=== PATIENT | male | born 1975 | race Caucasian/White ===

== ENCOUNTER 2016-10-10 15:08 | Emergency (ER) | payer OTHER ==
[~2016-10-10] VITALS: Ht 175.3 cm; Wt 72.6 kg
[2016-10-10 16:05] LABS: ABSOLUTE BASOPHIL COUNT 0.1 /CUMM (0.0-0.2); ABSOLUTE EOSINOPHIL COUNT 0.1 /CUMM (0.0-0.7); ABSOLUTE GRANULOCYTE CT 10.3 /CUMM (1.4-6.5); ABSOLUTE LYMPH COUNT 3.6 /CUMM (1.2-3.4); ABSOLUTE MONOCYTE COUNT 1.5 /CUMM (0.10-0.60); BASOPHIL % 0.7 % (0.0-2.0); EOSINOPHIL % 0.7 % (0-5); GRANULOCYTE % 65.6 % (42.2-75.2); RED BLOOD CELL CT 5.96 /CUMM (4.70-6.10); WHITE BLOOD CELL COUNT 15.6 /CUMM (4.8-10.8)
[2016-10-10 16:14] LABS: HEMATOCRIT 54.1 % (42-52); MEAN CORPUSCULAR HGB 30.3 PG (27.0-31.0); MEAN CORPUSCULAR HGB CONC 33.4 G/DL (33.0-37.0); MEAN CORPUSCULAR VOLUME 90.7 FL (80.0-94.0); MEAN PLATELET VOLUME 8.1 FL (7.4-10.4); PLATELET COUNT 320 /CUMM (130-400); RBC DISTRIBUTION WIDTH 12.7 % (11.5-14.5)
--- NOTE | 2016-10-10 17:15 | ED GI/GU/ABDOMINAL COMPLAINT ---
History of Present Illness General Chief Complaint: General Adult Stated Complaint: WEAKNESS, WEIGHT LOSS,ABD.PAIN, HX OF DKA Source: patient Exam Limitations: no limitations Vital Signs & Intake/Output Vital Signs & Intake/Output Vital Signs Date Time Temp Pulse Resp B/P B/P Pulse O2 O2 Flow FiO2 Mean Ox Delivery Rate 10/10 1737 98.6 90 18 135/79 97 Room Air 10/10 1512 99.3 116 18 102/72 96 Room Air Allergies Coded Allergies: NO KNOWN ALLERGIES (10/10/16) Triage Note: PT TO TRIAGE WITH C/O GENERAL WEAKNESS, LOSS OF APPETITE, UPPER ABD PAIN, NAUSEA x5 DAYS. PT WAS AT FOR DKA x6DAYS, AND WAS DC A WEEK AGO. HX OF DIABETES,ASTHMA,NEUROPOTHY. BG 150 IN TRIAGE, VSS. PT DENIES CHEST PAIN,SOB, DENIES URINARY S/S. ALSO PT CONSTIPATING xWEEK. Triage Nurses Notes Reviewed? yes HPI: Mr. Flores is a 41 yo m w/ PMH diabetes and asthma presenting to the emergency department for abdominal pain. Patient states that he was just hospitalized at [facility] for 11 days for DKA. He's been on for 4 days now and has not had any improvement in symptoms. He continues to have subjective chills as well as body sweats. Patient has not checked his temperature to assess for fever. He also endorses diffuse abdominal pain, and nausea with intermittent episodes of vomiting. No blood or bilious vomit. Last episode of vomiting was earlier today. states that the patient is having frequent episodes of GERD and reflux. He has been actively belching and unable to keep down food. endorses a 10-20 pound weight loss over the past month. (CHRISTOPHER REYNA MD) Past History Travel History Traveled to [place] past 21 day No Medical History Any Pertinent Medical History? see below for history Respiratory: asthma Endocrine: diabetes Surgical History Surgical History: none Psychosocial History What is your primary language Sami Tobacco Use: Quit <30 days ago Family History Hx Contributory? No (CHRISTOPHER REYNA MD) Review of Systems Review of Systems Constitutional: Reports: see HPI, chills. EENTM: Reports: no symptoms. Respiratory: Reports: no symptoms. Cardiovascular: Reports: no symptoms. GI: Reports: abdominal pain, nausea, vomiting. Genitourinary: Reports: frequency. Musculoskeletal: Reports: no symptoms. Skin: Reports: no symptoms. Neurological/Psychological: Reports: no symptoms. Hematologic/Endocrine: Reports: no symptoms. Immunologic/Allergic: Reports: no symptoms. All Other Systems: Reviewed and Negative (CHRISTOPHER REYNA MD) Physical Exam Physical Exam General Appearance: well developed/nourished, no apparent distress, alert, awake , moderate distress, thin Head: atraumatic, normal appearance Eyes: Bilateral: normal appearance, PERRL, EOMI, normal inspection. Ears, Nose, Throat, Mouth: hearing grossly normal Neck: normal inspection, supple, full range of motion Respiratory: normal breath sounds, chest non-tender, no respiratory distress Cardiovascular: regular rate/rhythm Gastrointestinal: normal bowel sounds, soft, diffusely tender. Mild voluntary guarding. No rebound Rectal: deferred Back: normal inspection, normal range of motion Extremities: normal range of motion Neurologic/Psych: no motor/sensory deficits, awake, alert, oriented x 3, normal gait, normal mood/affect Skin: intact, normal color, warm/dry Core Measures ACS in differential dx? No Severe Sepsis Present: No Septic Shock Present: No (CHRISTOPHER REYNA MD) Progress Differential Diagnosis: bowel obstruction, cholecystitis, diverticulitis, gastritis, ischemic bowel Plan of Care: Orders Procedure Date/time Status URINALYSIS 10/10 1707 Complete MIXED VENOUS BLOOD GAS (GEN) 10/10 1540 Active LIPASE 10/10 1540 Complete LACTIC ACID 10/10 1540 Complete COMPREHENSIVE METABOLIC PANEL 10/10 1540 Complete CBC WITHOUT DIFFERENTIAL 10/10 1540 Complete ACETONE 10/10 1540 Complete Current Medications Sig/Patrica Start time Last Medication Dose Stop Time Status Admin Sodium Chloride 1,000 ML BOLUS ONE 10/11 1999 AC (Normal Saline 0.9%) 10/10 205 Laboratory Tests 10/10/16 1840: Lactic Acid Cancelled 10/10/16 1745: Urinalysis LIGHT H, Urine Color YEL, Urine Clarity CLEAR, Urine pH 6.0, Ur Specific [place] 1.020, Urine Protein TRACE H, Urine Ketones TRACE H, Urine Nitrite NEG, Urine Bilirubin NEG, Urine Urobilinogen 2.0 H, Ur Leukocyte Esterase NEG, Ur Microscopic SEDIMENT EXAMINED, Urine WBC RARE, Urine Bacteria MOD H, Urine Hemoglobin NEG, Urine Glucose 250 H 10/10/16 1554: Anion Gap 13, Estimated GFR > 60, BUN/Creatinine Ratio 26.7 H, Glucose 145 H, Lactic Acid 1.7, Calcium 9.7, Total Bilirubin 1.6 H, AST 17, ALT 30, Alkaline Phosphatase 60, Total Protein 7.6, Albumin 4.4, Globulin 3.2, Albumin/Globulin Ratio 1.4, Lipase 87, CBC w Diff MAN DIFF ORDERED, RBC 5.96, MCV 90.7, MCH 30.3, RDW 12.7, MPV 8.1, Gran % 65.6, Lymphocytes % 23.1, Monocytes % 9.9 H, Eosinophils % 0.7, Basophils % 0.7, Absolute Granulocytes 10.3 H, Segmented Neutrophils 54, Band Neutrophils 2, Absolute Lymphocytes 3.6 H, Lymphocytes 32, Monocytes 11 H, Absolute Monocytes 1.5 H, Absolute Eosinophils 0.1, Basophils 1, Absolute Basophils 0.1, Platelet Estimate ADEQUATE, Anisocytosis 1+, PUBS MCHC 33.4, Acetone Level NEGATIVE Patient is a 41-year-old male with diabetes and asthma presenting to the ED for abdominal pain. Patient also endorses weight loss, he is thin appearing however not cachectic. He was recently hospitalized at [facility] for 10 days for DKA. Possible DKA again today. We will obtain basic labs and assess hydration status. Patient is afebrile and vitals appear to be within normal limits although his blood pressure slightly lower than expected. Will give 1 L of IV fluid and reassessed. Labs show leukocytosis of 15.6 however the patient is diffusely concentrated. Patient also has an elevated BUN and creatinine ratio again consistent with dehydration. Some mild hyponatremia and hypochloremia which we will address by giving one additional liter of fluids. Given the significant leukocytosis and the reported weight loss, will obtain CT abdomen and pelvis to assess for any oncologic or mass process. CT had some nonacute findings and evidence of a possible stricture within the sigmoid. Discussed with surgical attending quality control assessor. Does not feel this is anything that could explain the patient's symptoms and patient likely needs outpatient workup and colonoscopy. Discussed this with the patient and his . can make an appointment with their PCP tomorrow to start scheduling outpatient workup. Patient given return precautions. (CHRISTOPHER REYNA MD) Initial ED EKG: none (CHRISTOPHER REYNA MD) Departure Departure Time of Disposition: 2023 Disposition: HOME OR SELF CARE Condition: Stable Clinical Impression Primary Impression: Abdominal pain Qualifiers: Abdominal location: generalized Qualified Code: R10.84 - Generalized abdominal pain Secondary Impressions: Leukocytosis Qualifiers: Leukocytosis type: other Qualified Code: D72.828 - Other elevated white blood cell count Referrals: ALEJANDRA CAGLE,EDA Richards (PCP/Family) Additional Instructions: Please follow up with her primary care doctor for abdominal pain today. It might be necessary for you to have a colonoscopy to further evaluate what the narrowing in the rectum is. If he develops a fever, or unable to keep down food or any other concerning symptoms please return to the emergency department for further evaluation. Departure Forms: Customer Survey General Discharge Information (MARIBELL CAGLE,CHRISTOPHER) Resident Co-Sign Statement Statement: ED Attending supervision documentation- [] I saw and evaluated the patient. I have also reviewed all the pertinent lab results and diagnostic results. I agree with the findings and the plan of care as documented in the Resident's documentation. [X] I have reviewed the ED Record and agree with the Resident's documentation. [] Additions or exceptions (if any) to the Resident's note and plan are summarized below: [] (JIE CAGLE,BONNIE Samuel)
--- NOTE | 2016-10-10 17:41 | RADIOLOGY REPORT ---
EXAMINATION: XR CHEST CLINICAL INFORMATION: Cough and fever. COMPARISON: None TECHNIQUE: 2 views of the chest were obtained. FINDINGS: No significant abnormality is noted involving the heart, lungs, mediastinum, bony thorax or soft tissues. IMPRESSION: No evidence of pneumonia.
--- NOTE | 2016-10-10 18:54 | CT SCAN REPORT ---
EXAMINATION: CT ABDOMEN AND PELVIS WITH CONTRAST CLINICAL INFORMATION: Abdominal pain, sweats, chills. COMPARISON: None. TECHNIQUE: Multidetector volumetric imaging was performed of the abdomen and pelvis before and after the IV administration of 95 mL of Optiray 320 intravenous contrast. Sagittal and coronal reformatted images were obtained on the technologist's workstation. DLP: 275 mGy-cm. FINDINGS: LUNG BASES: The visualized lung bases are unremarkable. LIVER, GALLBLADDER, AND BILIARY TREE: The liver is normal in size, shape, and attenuation. No focal hepatic lesion or biliary ductal dilatation is present. The gallbladder is unremarkable with no evidence of radiopaque gallstones, gallbladder wall thickening, or obvious pericholecystic inflammatory changes. PANCREAS: Top normal caliber of the pancreatic duct. No focal pancreatic lesion. SPLEEN: Unremarkable. ADRENAL GLANDS: Unremarkable. KIDNEYS AND URETERS: Bilateral nephrograms are symmetric without hydronephrosis. No convincing renal or ureteral calculi. Punctate pelvic calcifications are favored to represent phleboliths. No suspicious renal mass. BLADDER: Unremarkable. GASTROINTESTINAL TRACT: Bowel gas pattern is nonobstructive. No evidence of acute bowel inflammation. There is focal luminal narrowing of the sigmoid colon on axial image 63/95 and coronal image 29/83 which is nonspecific. No significant diverticulosis. The appendix is normal. ABDOMINAL WALL: No significant hernia is appreciated. LYMPH NODES: No pathologically enlarged lymph nodes are demonstrated. VASCULAR: Unremarkable. PELVIC VISCERA: No free pelvic fluid. Prostate gland and seminal vesicles are unremarkable. OSSEOUS STRUCTURES: There is a sharply demarcated 1.7 cm lucency within the S1 portion of the sacrum; on sagittal image 66/120, there is a thin channel extending to the L5-S1 disc space. No acute osseous abnormality. IMPRESSION: 1. No evidence of acute bowel pathology. 2. Short segment focal luminal narrowing of the sigmoid colon is nonspecific (see leyva image). Diagnostic considerations include focal peristalsis or possible neoplasm. Recommend nonemergent GI consultation for possible colonoscopy. 3. A nonspecific 1.7 cm lucency within S1. This may represent an atypical Schmorl's node. Attention on follow-up imaging recommended. Favor this is a nonmalignant process.
[2016-10-10 21:00] VITALS: BP 128/78
== END 2016-10-10 21:01 ==
LOC: ERH 15:08
PROVIDERS: Emergency Medicine
DX: D72.829 Elevated white blood cell count, unspecified (principal); R10.84 Generalized abdominal pain
CPT/HCPCS: 74177; 81001; 96361; 96374; 96375; J2405

== ENCOUNTER 2017-12-12 10:39 | Inpatient (IN) | payer OTHER ==
[~2017-12-12] VITALS: Ht 177.8 cm; Wt 59.4 kg
[~2017-12-12 10:39] MED LIST: AMITRIPTYLINE H25 M2 PO; DILAUDID2 M1 PO; GABAPENTIN400 M2 PO; LANTUS100 UNIT/1 SC; LYRICA75 M1 PO; NOVOLOG100 UNIT/2 SC; ONDANSETRON HCL4 MG PO; PANTOPRAZOLE SO40 M1 PO; PERCOCET 5-3251 EACH PO; PROAIR HFA8.5 GM INH; PROMETHAZINE HC25 M3 PO; PROMETHAZINE12.5 M2 PO; SERTRALINE HCL50 MG PO; SUCRALFATE1 G1 PO; TRAZODONE HCL150 M1 PO; ZOFRAN ODT4 M1 SL; ZOFRAN4 M2 PO
[2017-12-12 11:57] LABS: ABSOLUTE BASOPHIL COUNT 0.1 /CUMM (0.0-0.2); ABSOLUTE EOSINOPHIL COUNT 0.1 /CUMM (0.0-0.7); ABSOLUTE GRANULOCYTE CT 4.5 /CUMM (1.4-6.5); ABSOLUTE LYMPH COUNT 3.3 /CUMM (1.2-3.4); ABSOLUTE MONOCYTE COUNT 0.7 /CUMM (0.10-0.60); BASOPHIL % 0.6 % (0.0-2.0); GRANULOCYTE % 52.5 % (42.2-75.2); HEMATOCRIT 47.1 % (42-52); MEAN CORPUSCULAR HGB 31.2 PG (27.0-31.0); MEAN CORPUSCULAR HGB CONC 35.1 G/DL (33.0-37.0); MEAN CORPUSCULAR VOLUME 88.8 FL (80.0-94.0); MEAN PLATELET VOLUME 8.6 FL (7.4-10.4); PLATELET COUNT 265 /CUMM (130-400); RBC DISTRIBUTION WIDTH 13.1 % (11.5-14.5); WHITE BLOOD CELL COUNT 8.7 /CUMM (4.8-10.8)
--- NOTE | 2017-12-12 12:07 | ED GENERAL ADULT ---
History of Present Illness General Chief Complaint: Nausea, Vomiting, Diarrhea Stated Complaint: ERIBERTO NVD X3 MONTHS Source: patient Exam Limitations: no limitations Vital Signs & Intake/Output Vital Signs & Intake/Output Vital Signs Date Time Temp Pulse Resp B/P B/P Pulse O2 O2 Flow FiO2 Mean Ox Delivery Rate 12/12 1334 98.6 93 20 116/78 97 Room Air 12/12 1048 98.7 117 18 125/80 97 Room Air Allergies Coded Allergies: metoclopramide (From REGLAN) (Severe, "FEEL LIKE IM JUMPING OUT OF MY SKIN" ) nicotine (UNKNOWN PER PT 12/09/17) NICODERM PATCH Reconcile Medications Albuterol Sulfate (Proair Hfa) 90 MCG HFA.AER.AD 2 PUF INH Q4-6 PRN PRN SHORTNESS OF BREATH (Reported) Amitriptyline HCl 25 MG TABLET 1 TAB PO QPM SLEEP (Reported) Insulin Aspart (Novolog) (Unknown Strength) VIAL (Unknown Dose) SC TID DIABETES (Reported) Insulin-Lantus (Lantus) 100 UNIT/ML VIAL 14 UNITS SC BID DIABETES (Reported) Ondansetron (Zofran Odt) 4 MG TAB.RAPDIS 1 TAB SL TID PRN NAUSEA Pantoprazole Sodium 40 MG TABLET.DR 1 TAB PO BID GI (Reported) Pregabalin (Lyrica) 75 MG CAPSULE 1 CAP PO TID PAIN (Reported) Promethazine HCl 25 MG TABLET 1 TAB PO Q6P PRN NAUSEA Sertraline HCl 50 MG TABLET 1 TAB PO DAILY MENTAL HEALTH (Reported) Trazodone HCl 150 MG TABLET 1 TAB PO QPM SLEEP (Reported) Trimethobenzamide HCl (Tigan) 300 MG CAPSULE 1 CAP PO TID GI (Reported) Triage Note: PT ERIBERTO FROM HOME SIB PMD FOR N/V ABDOMINAL PAIN AND WEIGHT LOSS OF 40 LBS X 3 MONTHS. SENT TO BE ADMITTED FOR TPN Triage Nurses Notes Reviewed? yes HPI: This is a 42-year-old male with history of poorly controlled diabetes, asthma, several months of GI complaints, presenting to the emergency department with recurrence of nausea/vomiting/poorly localized abdominal pain. Patient states that he has not been able to eat well for the past several days, saw his PMD today and was told to come to the emergency department for "placement of a feeding tube". Patient complains of poorly localized abdominal pain today with ongoing nausea. He arrives tachycardic, denies fever/chills/chest pain/ shortness of breath. Patient states that he is unintentionally lost about 40 pounds over the last few months. Past History Travel History Traveled to [place] past 21 day No Medical History Any Pertinent Medical History? 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 No Review of Systems Review of Systems Constitutional: Reports: malaise, weakness, unexplained weight loss. Denies: chills, diaphoresis, fever. EENTM: Reports: no symptoms. Respiratory: Reports: no symptoms. Cardiovascular: Reports: no symptoms. GI: Reports: abdominal pain, nausea, vomiting. Genitourinary: Reports: no symptoms. Musculoskeletal: Reports: no symptoms. Skin: Reports: no symptoms. Neurological/Psychological: Reports: no symptoms. Hematologic/Endocrine: Reports: no symptoms. Immunologic/Allergic: Reports: no symptoms. Physical Exam Physical Exam General Appearance: well developed/nourished, no apparent distress, alert, awake , anxious, thin Head: atraumatic, normal appearance Eyes: Bilateral: normal appearance. Ears, Nose, Throat: normal pharynx, normal ENT inspection, hearing grossly normal Neck: normal inspection, supple, full range of motion Respiratory: normal breath sounds, chest non-tender, no respiratory distress, smell of ketones on breath Cardiovascular: normal peripheral pulses, tachycardia Gastrointestinal: soft, non-tender Rectal: deferred Back: normal inspection, normal range of motion Extremities: normal inspection, normal capillary refill, normal range of motion, no edema Neurologic/Psych: no motor/sensory deficits, awake, alert, oriented x 3, normal gait, normal mood/affect Skin: intact, normal color, warm/dry Core Measures ACS in differential dx? No CVA/TIA Diagnosis: No Sepsis Present: No Sepsis Focused Exam Completed? No Progress Differential Diagnoses I considered the following diagnoses in my evaluation of the patient: In this patient with several months of nausea/vomiting/poorly localized abdominal pain, clinically suspect diabetic gastroparesis. Patient may have concomitant metabolic derangement, possible ketosis versus ketoacidosis. Mild concern for occult infection. Doubt acute intra-abdominal pathology, given recent CAT scan in the light of similar clinical findings/historical features. Doubt acute coronary syndrome. Could be HHS. Plan of Care: Orders Procedure Date/time Status CBC WITHOUT DIFFERENTIAL 12/13 06 Active BASIC ELECTROLYTES PLUS BUN&CR 12/13 06 Active Consistent Carbohydrate 3 12/12 D Active Weight 12/12 1453 Active Vital Signs 12/12 1453 Active Teach/Educate 12/12 1453 Active Pain Treatment and Response 12/12 1453 Active Nutritional Intake, Monitor 12/12 1453 Active Isolation 12/12 1453 Active Intake & Output 12/12 1453 Active Patient Care Conference 12/12 1453 Active Activity/Ambulation 12/12 1453 Active LACTIC ACID 12/12 1445 Active Add-on Test (ER Only) 12/12 1353 Active Pathway - chart 12/12 1341 Active House Staff 12/12 1341 Active Patient Data 12/12 1305 Active Admit to inpatient 12/12 1302 Active Code Status 12/12 1302 Active URINE DRUGS OF ABUSE 12/12 1245 Complete ARTERIAL BLOOD GAS (GEN) 12/12 1145 Complete CULTURE,URINE 12/12 1145 Active URINALYSIS 12/12 1145 Complete SERUM OSMOLALITY 12/12 1145 Complete LACTIC ACID 12/12 1145 Complete GLYCOSYLATED HGB 12/12 1145 Complete COMPREHENSIVE METABOLIC PANEL 12/12 1145 Complete CBC WITHOUT DIFFERENTIAL 12/12 1145 Complete ACETONE 12/12 1145 Complete EKG 12/12 1145 Active Intake & Output 12/12 1118 Active Lab Add-on Test 12/12 UNK Active VTE Mechanical Prophylaxis 12/12 UNK Active Vital Signs 12/12 UNK Active Intake & Output 12/12 UNK Complete FingerStick- Glucose 12/12 UNK Active Activity/Ambulation 12/12 UNK Active Current Medications Sig/Patrica Start time Last Medication Dose Stop Time Status Admin Enoxaparin Sodium 40 MG DAILY 12/13 09 AC (Lovenox) Sertraline HCl 50 MG DAILY 12/13 0900 AC (Zoloft) Amitriptyline HCl 25 MG QPM 12/12 2100 AC (Elavil 25 Mg. Tablet) Insulin Detemir 7 UNITS BID 12/12 2100 AC (Levemir) Omeprazole 40 MG BID 12/12 2100 AC (Prilosec) Insulin Aspart 0 TIDAC 12/12 1700 AC (NovoLOG) Albuterol Sulfate 2 PUF Q4-6 PRN PRN 12/12 1400 AC (Ventolin) Pregabalin 75 MG TID 12/12 1400 AC 12/12 (Lyrica) 1428 Trazodone HCl 150 MG QPM PRN 12/12 1400 AC (Desyrel) Acetaminophen 650 MG Q6P PRN 12/12 1345 AC (Tylenol) Acetaminophen 1,000 MG Q6P PRN 12/12 1345 AC (Ofirmev) Morphine Sulfate 2 MG Q4P PRN 12/12 1345 AC (MORPHINE SULFATE) Ondansetron HCl 4 MG Q6P PRN 12/12 1345 AC (Zofran) Laboratory Tests 12/12/17 1248: Urine Color YEL, Urine Clarity CLEAR, Urine pH 6.0, Ur Specific [place] 1.025, Urine Protein NEG, Urine Ketones >=80, Urine Nitrite NEG, Urine Bilirubin NEG, Urine Urobilinogen 0.2, Ur Leukocyte Esterase NEG, Ur Microscopic EXAM NOT REQUIRED, Urine Hemoglobin NEG, Urine Glucose >=1000 H 12/12/17 1245: Urine Opiates Screen 170, Methadone Screen 55, Barbiturate Screen < 60, Ur Phencyclidine Scrn < 6.00, Amphetamines Screen 205, U Benzodiazepines Scrn < 85, Urine Cocaine Screen < 50, Urine Cannabis Screen 74.60 H 12/12/17 1145: Anion Gap 20 H, Estimated GFR > 60, BUN/Creatinine Ratio 21.7, Glucose 292 H, Hemoglobin A1c 9.1 H, Serum Osmolality 285, Lactic Acid 1.3, Calcium 9.5, Total Bilirubin 1.1, AST 17, ALT 23, Alkaline Phosphatase 69, Total Protein 6.9, Albumin 4.2, Globulin 2.7, Albumin/Globulin Ratio 1.6, CBC w Diff NO MAN DIFF REQ, RBC 5.30, MCV 88.8, MCH 31.2 H, MCHC 35.1, RDW 13.1, MPV 8.6, Gran % 52.5, Lymphocytes % 38.2, Monocytes % 7.7, Eosinophils % 1.0, Basophils % 0.6, Absolute Granulocytes 4.5, Absolute Lymphocytes 3.3, Absolute Monocytes 0.7 H, Absolute Eosinophils 0.1, Absolute Basophils 0.1, Acetone Level POSITIVE AT 1:8 DIL Microbiology 12/12 1248 URINE ROUT: Urine Culture - RECD Plan for IV fluids, labs, ABG for pH, EKG, reassessment, possible admission for ongoing workup. Initial ED EKG: normal axis, none, normal intervals, NSR Departure Departure Time of Disposition: 1302 Disposition: STILL A PATIENT Condition: Stable Clinical Impression Primary Impression: Increased anion gap metabolic acidosis Referrals: Saeid Arias MD (PCP/Family) Departure Forms: Customer Survey General Discharge Information Admission Note Spoke With: Neto Mcdonough MD Documentation of Exam: Documentation of any treatments & extenuating circumstances including Concerns Regarding Discharge (functional status, medication knowledge or non-compliance, living conditions, etc.) that warrant an admission rather than observation: Patient will require frequent lab checks, GI consultation, IV fluids, pain control, IV nausea control for uncontrollable nausea and vomiting, advance diet as tolerated, reassessment, case management consultation. Patient has failed outpatient treatment. Critical Care Note Critical Care Note Critical Care Time: non-applicable
[2017-12-12] MEDS ORDERED: TIGAN300 MG PO (12:33)
--- NOTE | 2017-12-12 13:14 | History & Physical ---
Ollie Worrell 12/12/17 1313: General Information and HPI MD Statement: I have seen and personally examined TANJA FLORES and documented this H&P. The patient is a 42 year old M who presented with a patient stated chief complaint of nausea, vomiting, abdominal pain in the context of 40-lb weight loss over 4 months. . Source of Information: patient, old records History of Present Illness: This is a 42-year-old male with history of poorly controlled diabetes, asthma, several months of GI complaints, presenting to the emergency department with recurrence of nausea/vomiting/poorly localized abdominal pain. Patient states that he has not been able to eat well for the past several days, saw his PMD today and was told to come to the emergency department for placement of TPN tube. Patient complains of poorly localized abdominal pain today with ongoing nausea. He arrives tachycardic, denies fever/chills/chest pain/shortness of breath. Patient states that he is unintentionally lost about 40 pounds over the last few months. Allergies/Medications Allergies: Coded Allergies: metoclopramide (From REGLAN) (Severe, "FEEL LIKE IM JUMPING OUT OF MY SKIN" ) nicotine (UNKNOWN PER PT 12/09/17) NICODERM PATCH Compliance With Home Meds: UNKNOWN (states good, but DM uncontroll) Past History Travel History Traveled to [place] past 21 day No Medical History Neurological: NONE EENT: NONE Cardiovascular: NONE Respiratory: asthma Gastrointestinal: irritable bowel syndrome Hepatic: NONE Renal: NONE Musculoskeletal: NONE Psychiatric: NONE Endocrine: diabetes Blood Disorders: NONE Cancer(s): NONE CALENDER WIND UP TENDER/Reproductive: NONE Surgical History Surgical History: none Past Family/Social History Psychosocial History Who Do You Live With? PARTNER Smoking Status: Current Everyday Smoker ETOH Use: denies use Illicit Drug Use: denies illicit drug use Living Will? no Employment History Employment Employed Profession/Employer [employer] Review of Systems Review of Systems Constitutional: Reports: no symptoms. GI: Reports: abdominal pain, diarrhea (intermittently), nausea, vomiting. Musculoskeletal: Reports: no symptoms. Neurological/Psychological: Reports: no symptoms. Hematologic/Endocrine: Reports: polyuria, polydipsia. Exam & Diagnostic Data Last 24 Hrs of Vital Signs/I&O Vital Signs Date Time Temp Pulse Resp B/P B/P Pulse O2 O2 Flow FiO2 Mean Ox Delivery Rate 12/12 1512 97.8 87 18 100/62 98 Room Air 12/12 1334 98.6 93 20 116/78 97 Room Air 12/12 1048 98.7 117 18 125/80 97 Room Air Intake & Output 12/12 1600 12/12 0800 12/12 0000 Intake Total 2000 Output Total 450 Balance 1550 Intake, IV 2000 Output, Urine 450 Patient 131 lb Weight Weight Reported by Patient Measurement Method Physical Exam General Appearance Alert, Oriented X3, Cooperative, Mild Distress Skin No Rashes, No Breakdown Skin Temp/Moisture Exam: Warm/Dry Sepsis Skin Exam (color): Normal for Ethnicity HEENT Atraumatic, PERRLA, EOMI, Mucous membranes dry and pink Neck Supple, No thryomegaly, JVD present Lymphatic Axillary nl, Cervical nl Cardiovascular Regular Rate, Normal S1, Normal S2, No Murmurs Lungs Clear to Auscultation, Normal Air Movement Abdomen Normal Bowel Sounds, Soft, No Hepatospenomegaly, tender to palpation, especially in epigastric area Neurological Normal Speech, Strength at 5/5 X4 Ext, Normal Tone, Sensation Intact, Cranial Nerves 3-12 NL, peripheral neuropathy diffusely on feet Extremities No Clubbing, No Cyanosis, No Edema Vascular Normal Pulses, Pulses Symmetrical Last 24 Hrs of Labs/Ky: Laboratory Tests 12/12/17 1248: Urine Color YEL, Urine Clarity CLEAR, Urine pH 6.0, Ur Specific [place] 1.025, Urine Protein NEG, Urine Ketones >=80, Urine Nitrite NEG, Urine Bilirubin NEG, Urine Urobilinogen 0.2, Ur Leukocyte Esterase NEG, Ur Microscopic EXAM NOT REQUIRED, Urine Hemoglobin NEG, Urine Glucose >=1000 H 12/12/17 1245: Urine Opiates Screen 170, Methadone Screen 55, Barbiturate Screen < 60, Ur Phencyclidine Scrn < 6.00, Amphetamines Screen 205, U Benzodiazepines Scrn < 85, Urine Cocaine Screen < 50, Urine Cannabis Screen 74.60 H 12/12/17 1145: Anion Gap 20 H, Estimated GFR > 60, BUN/Creatinine Ratio 21.7, Glucose 292 H, Hemoglobin A1c 9.1 H, Serum Osmolality 285, Lactic Acid 1.3, Calcium 9.5, Total Bilirubin 1.1, AST 17, ALT 23, Alkaline Phosphatase 69, Total Protein 6.9, Albumin 4.2, Globulin 2.7, Albumin/Globulin Ratio 1.6, CBC w Diff NO MAN DIFF REQ, RBC 5.30, MCV 88.8, MCH 31.2 H, MCHC 35.1, RDW 13.1, MPV 8.6, Gran % 52.5, Lymphocytes % 38.2, Monocytes % 7.7, Eosinophils % 1.0, Basophils % 0.6, Absolute Granulocytes 4.5, Absolute Lymphocytes 3.3, Absolute Monocytes 0.7 H, Absolute Eosinophils 0.1, Absolute Basophils 0.1, Acetone Level POSITIVE AT 1:8 DIL Microbiology 12/12 1248 URINE ROUT: Urine Culture - RECD Assessment/Plan Assessment: 42 yo male brought in by ambulance for nausea, vomiting and abdominal pain. Patient states that he has been experiencing this particular problem for the past 3 months. Differentials: gastroparesis/cyclic vomiting syndrome; DKA, HHS Problem list/plan: Nausea/vomiting/abdominal pain -Vitals and monitor I/O per protocol -NovoLog sliding scale, Accu-Chek Chronic conditions (hyperglycemia, peripheral neuropathy, asthma, IV) -HbA1c poorly controlled (9.1) As Ranked By This Provider Problem List: 1. Nausea & vomiting 2. Abdominal pain 3. Increased anion gap metabolic acidosis Core Measures/Misc (02/13) Acute Coronary Syndrome ACS Diagnosis: No Congestive Heart Failure Congestive Heart Failure Diagnosis No Cerebrovascular Accident CVA/TIA Diagnosis: No VTE (View Protocol) VTE Risk Factors Age>40 No Mechanical VTE Prophylaxis d/t N/A MechProphylax Ordered No VTE Pharm Prophylaxis d/t NA PharmProphylax ordered Sepsis (View protocol) Sepsis Present: No If YES complete Sepsis Event Note If YES complete Sepsis Event Note Bina Salvador 12/12/17 1318: General Information and HPI Allergies/Medications Home Med list Albuterol Sulfate (Proair Hfa) 90 MCG HFA.AER.AD 2 PUF INH Q4-6 PRN PRN SHORTNESS OF BREATH (Reported) Amitriptyline HCl 25 MG TABLET 1 TAB PO QPM SLEEP (Reported) Insulin Aspart (Novolog) (Unknown Strength) VIAL (Unknown Dose) SC TID DIABETES (Reported) Insulin-Lantus (Lantus) 100 UNIT/ML VIAL 14 UNITS SC BID DIABETES (Reported) Ondansetron (Zofran Odt) 4 MG TAB.RAPDIS 1 TAB SL TID PRN NAUSEA Pantoprazole Sodium 40 MG TABLET.DR 1 TAB PO BID GI (Reported) Pregabalin (Lyrica) 75 MG CAPSULE 1 CAP PO TID PAIN (Reported) Promethazine HCl 25 MG TABLET 1 TAB PO Q6P PRN NAUSEA Sertraline HCl 50 MG TABLET 1 TAB PO DAILY MENTAL HEALTH (Reported) Trazodone HCl 150 MG TABLET 1 TAB PO QPM SLEEP (Reported) Trimethobenzamide HCl (Tigan) 300 MG CAPSULE 1 CAP PO TID GI (Reported) Core Measures/Misc (02/13) Sepsis (View protocol) If YES complete Sepsis Event Note If YES complete Sepsis Event Note Resident Review Statement Resident Statement: examined this patient, discussed with university intern, agreed with university intern, discussed with family, reviewed EMR data (avail), discussed with nursing , discussed with case mgmt, reviewed images, amended to note Other Findings: Mr. Flores is a 42yo M w/ PMH of poorly controlled diabetes, asthma, IBS, GI complaints x several months BIBA to ER for recurrent N/V/Ab pain and no PO intake for the last few days, and sent in by PCP for "placement of feeding tube ". -Baselines: Ambulated freely -Work: [employer] in the past however lost the job. -FHx: Father had cardiac Hx. During our clinical interaction, patient denied recent travel/sick contacts, fever/lightheadedness/diaphoresis/night sweat/weight change/cough/SOB/Chest Pain /Palpitation/Abdominal pain/bowel movement or urinary abnormality, or other skin /musculoskeletal/neurological/mood disorders, or dietary/appetite change. -Smoking: active smoker -Alcohol: Denied -Rec Drugs: Marajuana use On admission, Vitals: Stable afebrile, tachycardia: 7 BP 125/80, 97% room air Physical exam -Gen.: AO x3, cooperative, no distress, -HEENT: NCAT, PERRL, EOMI, anicteric sclera, moist mucous membranes -Neck: Supple, no JVD, trachea midline, mild accessory respiratory muscle use -Cardio: Normal S1/S2 without significant murmurs/gallops/rubs -Pulmonary: grossly normal air movement w/ clear auscultation. NO acute distress on breathing. -Abdomen: Soft, nontender, nondistended, bowel sounds intact. Mild tenderness on epigastric region 3-4/10. No active N/V during examination. -Neuro: Awake and alert, cranial nerves II through XII grossly intact. Bilateral lower extremity sensation decreased with microfilament testing. -Extremity: Normal pulses/capillary refill, no cyanosis/clubbing/edema -CBC: Unremarkable -BMP: Hyponatremia 131 corrected to 138, no hypokalemia, elevated anion gap 20, with slight picture of acidosis, however may be attributed to recurrent nausea vomiting. Glucose 293 -UA/Microbiology: Unremarkable except urine glucose greater than 1000 and positive ketone. -Ab CT 12/09: No acute CT abnormality for patient's symptoms -EKG: NSR w/o significant ST-T abnormalities. -Last Echo: No previous echo in [facility] -Interventions in ER: Normal saline bolus 2 L, morphine 4 mg IV 1, Haldol 5 mg Problem list/Assessment/Hospital Course: #anion gap metabolic acidosis, likely due to nausea/vomiting #DKA/HHS pending rule out #Nausea/vomiting/abdominal pain likely 2/2 gastroparesis pending rule out #Hyperglycemia, without signs of HHS/DKA #Ketonuria #PseudoHyponatremia, corrected to 138 #Poorly controlled T1DM, HbA1c 9.1 #Peripheral Neuropathy #PMH of asthma, IBS? - Admit to general medicine - Vitals per protocol, monitor I&O per protocol. BID. - Patient stated that he had a recent EGD done at [facility] however no record in system. Patient stated he saw the GI Dr. López about a year ago. Would confirm w/ PCP as well if we could have obtained any record. DVT prophylaxis Pharm PPX + ALPS Regular Diet IV Access: Peripheral IV Full Code Sangita Lee 12/12/17 1333: Core Measures/Misc (02/13) Sepsis (View protocol) If YES complete Sepsis Event Note If YES complete Sepsis Event Note Attending MD Review Statement Attending Statement Attending MD Statement: examined this patient, discuss w/resident/PA/DIAMOND SIZER, agreed w/resident/PA/DIAMOND SIZER, discussed with family, reviewed EMR data (avail), discussed with nursing, discussed with case mgmt, reviewed images, amended to note Attending Assessment/Plan: Patient with insulin dependinent diabetes mellitus with vomiting is being admitted for unocntrolled hyperglycemia and intractbale vomitng likely gastroparesis. GI and endo consults. IVFs, prn nause ameds, obtain EGD results recently done 2 weeks ago. Basal insulin and RISS sliding scale as needed. gi/ dvt prophylaxis
[2017-12-12 15:12] VITALS: BP 100/62
--- NOTE | 2017-12-12 16:35 | PN- Student ---
Ana Davis 12/12/17 1633: Subjective Subjective: This Hstory and PE were recorded by medical student. Source of Information: patient, old records. History of Present Illnesses: 42-year-old male with PMH of asthma, type I diabetics, irritable bowel syndrome, cyclic vomiting presented to ER with 3 months nausea, vomiting, and abdominal pain. He had about 2 to 3 episodes similar to this in the past year, lasting 1 week to 1 month but this time his condition was the worst. He also stated he has lost about 40lbs for the past 3 months and did not know why. Patient denied fever, chest pain, SOB, loss of appetite. Patient stated that he felt tingling, numbness on his lower extremities. Patient followed up his GI, eye and diabetics doctors and said that he was compliant on his home medications. Medications/Allergies: Allergies: Coded Allergies: metoclopramide (From REGLAN) (Severe, "FEEL LIKE IM JUMPING OUT OF MY SKIN" ) nicotine (UNKNOWN PER PT 12/09/17) NICODERM PATCH Medications: Albuterol Sulfate (Proair Hfa) 90 MCG HFA.AER.AD 2 PUF INH Q4-6 PRN PRN SHORTNESS OF BREATH (Reported) Amitriptyline HCl 25 MG TABLET 1 TAB PO QPM SLEEP (Reported) Insulin Aspart (Novolog) (Unknown Strength) VIAL (Unknown Dose) SC TID DIABETES (Reported) Insulin-Lantus (Lantus) 100 UNIT/ML VIAL 14 UNITS SC BID DIABETES (Reported) Ondansetron (Zofran Odt) 4 MG TAB.RAPDIS 1 TAB SL TID PRN NAUSEA Pantoprazole Sodium 40 MG TABLET.DR 1 TAB PO BID GI (Reported) Pregabalin (Lyrica) 75 MG CAPSULE 1 CAP PO TID PAIN (Reported) Promethazine HCl 25 MG TABLET 1 TAB PO Q6P PRN NAUSEA Sertraline HCl 50 MG TABLET 1 TAB PO DAILY MENTAL HEALTH (Reported) Trazodone HCl 150 MG TABLET 1 TAB PO QPM SLEEP (Reported) Trimethobenzamide HCl (Tigan) 300 MG CAPSULE 1 CAP PO TID GI (Reported) Surgery History: no prior surgery Past Medical History: - Type I diabetics. - Asthma. - Irritable bowel sydnrome. 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 - Patient lives with his girlfriend, had dogs and cats at home. - Smoking hx: smoker. - Alcohol hx: denied alcohol use. - Recreational drugs: marijuanna abuse Family History: - Mother and maternal aunt had history of type I diabetics. - Father had history of [place]. ROS: - General: no fever, significant weight loss from around 180lbs to 130lbs. - Skin: dry, erythema. - HEENT: no sx - Neck: no sx - Heart: no sx - Lung: no SOB, no chest pain. - GI: abdominal pain, episodes of diarrhea with no blood. - Urinary: no sx - Genital: no sx - MSK: no sx - Neuro: diabetics peripheral neuropathy, tingling, numbness on lower extremities. Objective Objective: Physical Exam: - Vital signs: tachycardia on admission. - Patient is oriented x3, mild acute distress due to pain, coorporative. - HEENT: JALYN, EOMI. - Neck: unremarkable. - Heart: normal S1, S2, no additional murmur nor gallop. - Lungs: CTA bilaterally. - Abdomen: tenderness on upper abdomen upon palpation, pain rating 8/10 when he was on episodes. - Skin: dry, erythema. - Extremities: loss of sensation on lower extremities out of normal pattern of typical diabetics neuropathy, 5/5 strength bilaterally on both extremities. Labs: glucosuria, high serum glucose, high HbA1c, high anion gap metabollic acidosis, negative urine ketones, and hyponatremia, positive cannabis. Results Results: Laboratory Tests 12/12/17 1248: Urine Color YEL, Urine Clarity CLEAR, Urine pH 6.0, Ur Specific [place] 1.025, Urine Protein NEG, Urine Ketones >=80, Urine Nitrite NEG, Urine Bilirubin NEG, Urine Urobilinogen 0.2, Ur Leukocyte Esterase NEG, Ur Microscopic EXAM NOT REQUIRED, Urine Hemoglobin NEG, Urine Glucose >=1000 H 12/12/17 1245: Urine Opiates Screen 170, Methadone Screen 55, Barbiturate Screen < 60, Ur Phencyclidine Scrn < 6.00, Amphetamines Screen 205, U Benzodiazepines Scrn < 85, Urine Cocaine Screen < 50, Urine Cannabis Screen 74.60 H 07/16/18 1145: Anion Gap 20 H, Estimated GFR > 60, BUN/Creatinine Ratio 21.7, Glucose 292 H, Hemoglobin A1c 9.1 H, Serum Osmolality 285, Lactic Acid 1.3, Calcium 9.5, Total Bilirubin 1.1, AST 17, ALT 23, Alkaline Phosphatase 69, Total Protein 6.9, Albumin 4.2, Globulin 2.7, Albumin/Globulin Ratio 1.6, TSH Pending, Free T4 Pending, Total T3 Pending, CBC w Diff NO MAN DIFF REQ, RBC 5.30, MCV 88.8, MCH 31.2 H, MCHC 35.1, RDW 13.1, MPV 8.6, Gran % 52.5, Lymphocytes % 38.2, Monocytes % 7.7, Eosinophils % 1.0, Basophils % 0.6, Absolute Granulocytes 4.5, Absolute Lymphocytes 3.3, Absolute Monocytes 0.7 H, Absolute Eosinophils 0.1, Absolute Basophils 0.1, Acetone Level POSITIVE AT 1:8 DIL Microbiology 12/12 1248 URINE ROUT: Urine Culture - RECD Assessment/Plan Assessment: Summary: 42-year-old male with PMH of asthma, uncontrolled type I diabetics, irritable bowel syndrome presented to ER with nausea, vomiting, abdominal pain, 40lbs weight loss starting 3 months ago. Labs showed glucosuria, high serum glucose, high HbA1c, high anion gap metabollic acidosis, negative urine ketones, hyponatremia and positive cannabis. Differential Diagnoses: - Diabetics gastroparesis: his uncontrolled diabetics can promote episodes of nausea, vomiting and abdominal pain as well as his weight loss due to his unability to empty stomach. - DKA: signs and symptoms might point toward DKA. Need to obtain serum osmolarity and serume ketones/acetone to rule out. Patient had no signs of Kussmaul breathing and negative urine ketones. - PUD: patient had upper abdominal pain, and weight loss, need to obtain EGD to rule out PUD. - Maglinancy: significant weight loss can signal for maglinancy, need to obtain CT scan to rule out. However, patient had several visits to different hospitals before going [facility] and there was no concern about maglinancy. Plan: - Order serum osmolarity, serum ketones/acetones to rule in DKA. - Order EGD to rule out other GI problems including PUD. - Hydrate the patients to prevent going to DKA. Patient might be at edge for DKA : Give IV fluid. - Give IV insulin. Potassium level is at 4.5. - Pain meds prn. - Anti-emetic meds prn. - GI consult and endocrine consult. - DVT prophylaxis. - Patient is full code. Ollie Worrell 12/15/17 1521: Resident Review Statement Resident Statement: examined this patient, discussed with family, reviewed EMR data (avail), discussed with nursing, discussed with case mgmt
--- NOTE | 2017-12-12 20:01 | Cons- Endocrinology ---
General Information and HPI Consulting Request Date of Consult: 12/12/17 Requested By: medical team Reason for Consult: management of uncontrolled DM type 1 Source of Information: patient, old records Exam Limitations: no limitations History of Present Illness: 42 y/o male with hx of DM type 1 which was diagnosed when he was 28 years old and has been complicated with diabetic gastroparesis. Lately he has approximately 40 pounds. At home, he was on Lantus 14 units twice a day and Novolog on an average 6 units before meals. He presented with nausea, vomiting and abdominal pain for several days. In ER, blood work showed mildly ketosis with positive acetone and bicarb of 18. Currently he is on NS at 100 ml/hour, Levemir 7 units twice a day and Novolog coverage before meals. His FSGs were 193, 220 and 205. He would like to have dinner and consistent carbohydrates 3 diet was ordered. Allergies/Medications Allergies: Coded Allergies: metoclopramide (From REGLAN) (Severe, "FEEL LIKE IM JUMPING OUT OF MY SKIN" ) nicotine (UNKNOWN PER PT 12/09/17) NICODERM PATCH Home Med List: Albuterol Sulfate (Proair Hfa) 90 MCG HFA.AER.AD 2 PUF INH Q4-6 PRN PRN SHORTNESS OF BREATH (Reported) Amitriptyline HCl 25 MG TABLET 1 TAB PO QPM SLEEP (Reported) Insulin Aspart (Novolog) (Unknown Strength) VIAL (Unknown Dose) SC TID DIABETES (Reported) Insulin-Lantus (Lantus) 100 UNIT/ML VIAL 14 UNITS SC BID DIABETES (Reported) Ondansetron (Zofran Odt) 4 MG TAB.RAPDIS 1 TAB SL TID PRN NAUSEA Pantoprazole Sodium 40 MG TABLET.DR 1 TAB PO BID GI (Reported) Pregabalin (Lyrica) 75 MG CAPSULE 1 CAP PO TID PAIN (Reported) Promethazine HCl 25 MG TABLET 1 TAB PO Q6P PRN NAUSEA Sertraline HCl 50 MG TABLET 1 TAB PO DAILY MENTAL HEALTH (Reported) Trazodone HCl 150 MG TABLET 1 TAB PO QPM SLEEP (Reported) Trimethobenzamide HCl (Tigan) 300 MG CAPSULE 1 CAP PO TID GI (Reported) Review of Systems Review of Systems Constitutional: Reports: see HPI. Cardiovascular: Denies: chest pain. Respiratory: Denies: short of breath. GI: Reports: abdominal pain, nausea, vomiting. Genitourinary: Denies: dysuria. Hematologic/Endocrine: Denies: polyuria, polydipsia. Past History Travel History Traveled to [place] past 21 day No Medical History Blood Transfusion Hx: No Neurological: NONE EENT: NONE Cardiovascular: NONE Respiratory: asthma Gastrointestinal: irritable bowel syndrome Hepatic: NONE Renal: NONE Musculoskeletal: NONE Psychiatric: NONE Endocrine: DM type 1, gastroparesis Blood Disorders: NONE Cancer(s): NONE [employer] DEPARTMENT/Reproductive: NONE Surgical History Surgical History: 1 Psychosocial History Where Do You Live? Home Who Do You Live With? PARTNER Services at Home: None Smoking Status: Current Everyday Smoker ETOH Use: denies use Illicit Drug Use: denies illicit drug use Living Will? no Employment History Employment: Employed Profession/Employer: [employer] Exam & Diagnostic Data Last 24 Hrs of Vital Signs/I&O Vital Signs Date Time Temp Pulse Resp B/P B/P Pulse O2 O2 Flow FiO2 Mean Ox Delivery Rate 12/12 1512 97.8 87 18 100/62 98 Room Air 12/12 1334 98.6 93 20 116/78 97 Room Air 12/12 1048 98.7 117 18 125/80 97 Room Air Intake & Output 12/12 1600 12/12 0800 12/12 0000 Intake Total 2000 Output Total 450 Balance 1550 Intake, IV 2000 Output, Urine 450 Patient 131 lb Weight Weight Reported by Patient Measurement Method Physical Exam General Appearance: no apparent distress Neck: normal inspection Respiratory: normal breath sounds Cardiovascular: tachycardia (mild) Gastrointestinal: soft, tenderness (mild) Extremities: no edema Labs/Ky Results: Laboratory Tests 12/12 12/12 12/12 1713 1248 1245 Chemistry Lactic Acid (0.7 - 2.1 mmol/L) 1.0 Toxicology Urine Opiates Screen (>2000 NG/ML) 170 Methadone Screen (>300 NG/ML) 55 Barbiturate Screen (>200 NG/ML) < 60 Ur Phencyclidine Scrn (>25 NG/ML) < 6.00 Amphetamines Screen (>1000 NG/ML) 205 U Benzodiazepines Scrn (>200 NG/ML) < 85 Urine Cocaine Screen (>300 NG/ML) < 50 Urine Cannabis Screen (>50 NG/ML) 74.60 H Urines Urine Color (YEL,AMB,STR) YEL Urine Clarity (CLEAR) CLEAR Urine pH (5.0 - 8.0) 6.0 Ur Specific [place] (1.001 - 1.035) 1.025 Urine Protein (NEG,<30 MG/DL) NEG Urine Ketones (NEG) >=80 Urine Nitrite (NEG) NEG Urine Bilirubin (NEG) NEG Urine Urobilinogen (0.1 - 1.0 EU/dl) 0.2 Ur Leukocyte Esterase (NEG) NEG Ur Microscopic EXAM NOT REQUIRED Urine Hemoglobin (NEG) NEG Urine Glucose (N MG/DL) >=1000 H 12/12 1145 Chemistry Sodium (137 - 145 mmol/L) 131 L Potassium (3.5 - 5.1 mmol/L) 4.5 Chloride (98 - 107 mmol/L) 93 L Carbon Dioxide (22 - 30 mmol/L) 18 L Anion Gap (5 - 16) 20 H BUN (9 - 20 mg/dL) 13 Creatinine (0.7 - 1.2 mg/dL) 0.6 L Estimated GFR (>60 ml/min) > 60 BUN/Creatinine Ratio (7 - 25 %) 21.7 Glucose (65 - 99 mg/dL) 292 H Hemoglobin A1c (4.2 - 5.8 %) 9.1 H Serum Osmolality (285 - 295 MOSM/KG) 285 Lactic Acid (0.7 - 2.1 mmol/L) 1.3 Calcium (8.4 - 10.2 mg/dL) 9.5 Total Bilirubin (0.2 - 1.3 mg/dL) 1.1 AST (17 - 59 U/L) 17 ALT (21 - 72 U/L) 23 Alkaline Phosphatase (< 127 U/L) 69 Total Protein (6.3 - 8.2 g/dL) 6.9 Albumin (3.5 - 5.0 g/dL) 4.2 Globulin (1.9 - 4.2 gm/dL) 2.7 Albumin/Globulin Ratio (1.1 - 2.2 %) 1.6 TSH (0.270 - 4.200 uIU/mL) 0.256 L Free T4 (0.64 - 1.79 ng/dL) 1.69 Total T3 (0.97 - 1.69 ng/mL) 0.62 L Hematology CBC w Diff NO MAN DIFF REQ WBC (4.8 - 10.8 /CUMM) 8.7 RBC (4.70 - 6.10 /CUMM) 5.30 Hgb (14.0 - 18.0 G/DL) 16.5 Hct (42 - 52 %) 47.1 MCV (80.0 - 94.0 FL) 88.8 MCH (27.0 - 31.0 PG) 31.2 H MCHC (33.0 - 37.0 G/DL) 35.1 RDW (11.5 - 14.5 %) 13.1 Plt Count (130 - 400 /CUMM) 265 MPV (7.4 - 10.4 FL) 8.6 Gran % (42.2 - 75.2 %) 52.5 Lymphocytes % (20.5 - 51.1 %) 38.2 Monocytes % (1.7 - 9.3 %) 7.7 Eosinophils % (0 - 5 %) 1.0 Basophils % (0.0 - 2.0 %) 0.6 Absolute Granulocytes (1.4 - 6.5 /CUMM) 4.5 Absolute Lymphocytes (1.2 - 3.4 /CUMM) 3.3 Absolute Monocytes (0.10 - 0.60 /CUMM) 0.7 H Absolute Eosinophils (0.0 - 0.7 /CUMM) 0.1 Absolute Basophils (0.0 - 0.2 /CUMM) 0.1 Toxicology Acetone Level (NEGATIVE) POSITIVE AT 1:8 DIL Assessment/Plan Assessment/Plan 42 y/o male with hx of DM type 1 which was diagnosed when he was 28 years old and has been complicated with diabetic gastroparesis. Lately he has approximately 40 pounds. At home, he was on Lantus 14 units twice a day and Novolog on an average 6 units before meals. He presented with nausea, vomiting and abdominal pain for several days. In ER, blood work showed mildly ketosis with positive acetone and bicarb of 18. Plan: 1. continue the current IVF; 2. repeat BMP later today to look for a trend; 3. change the diet to consistent carbohydrate 1 diet; 4. increase Levemir to 14 units twice a day; 5. adjust Novolog coverage before meals and add Novolog coverage at bedtime; detail see the inpatient DM orders; 6. monitor FSGs; 7. blood work showed mildly suppressed TSH along with normal freeT4 and TT3 suggestive of sick euthyroid changes--- recommend having repeat TSH, free T4 and TT3 dond in 2-3 days; in addition, I will recommend checking thyroid antibody panel; 8. continue protonix iv; will follow Inpatient Diabetes Orders Before Each Meal: Bolus Insulin: Novolog < 80 mg/dl: no coverage 80-100 mg/dl: 4 units 101-120 mg/dl: 4 units 121-150 mg/dl: 4 units 151-200 mg/dl: 6 units 201-250 mg/dl: 7 units 251-300 mg/dl: 8 units 301-350 mg/dl: 10 units 351-400 mg/dl: 11 units > 400 mg/dl: 12 units Bedtime: Bolus Insulin: Novolog < 80 mg/dl: no coverage 80-100 mg/dl: no coverage 101-120 mg/dl: no coverage 121-150 mg/dl: no coverage 151-200 mg/dl: no coverage 201-250 mg/dl: no coverage 251-300 mg/dl: 2 units 301-350 mg/dl: 3 units 351-400 mg/dl: 4 units > 400 mg/dl: 5 units Consult Acknowledgment - Thank you for your consult request.
--- NOTE | 2017-12-12 20:59 | Cons- Gastroenterology ---
See Addendum General Information and HPI Consulting Request Date of Consult: 12/12/17 Requested By: Sangita Lee MD Reason for Consult: I was called by the hospitalist service approximately 4:30 p.m. this afternoon to assess chronic abdominal pain, nausea & vomiting. No vomiting has been witnessed since admission, & the patient ate pizza & a hamburger uneventfully this p.m. The patient is a fair historian & has limited records at [facility]. He has [facility] well as [facility] for the above over the past 1-2 months. He cannot disclose the names of his treating MDs, nor his PMD. Source of Information: patient, old records Exam Limitations: poor historian, fragmented care; pt cannot disclose names of his tx MDs. Records from [facility] & [facility] currently not available. History of Present Illness: 42 y/o male with limited medical records at [facility] & numerous recent trips to the [facility] (12/01/17, 12/05/17, 12/09/17, 12/12/17), for nausea, vomiting, intermittent ( rare) diarrhea, & poorly localized, diffuse abdominal pain. He apparently has been to numerous other ERs as well. He is a poorly controlled IDDM (dxd age 28), with hx peripheral neuropathy, asthma & 20 pk yr cigarette smoking. He denied any EtOH or illicit drug use, aside form cannabis. He claimed he stopped cannabis due to possible cannabinoid hyperemesis, which was felt to be the case at [place], but his nausea recurred off cannabis, so he resumed it (smokes > 3x/ week). He denied any rx narcotics, but later stated he was sent home from the ER on Percocet. He noted polyuria & polydypsia. One note stated he reportedly has DM gastroparesis, but the patient denied this. He has major depression & is on numerous psych meds. He claimed he was previously followed for primary care by Dr. Paula, but "switched to a PCP in [place], whose name he can't recall". Although the computer states his PMD is Dr. Zelaya, he did not seem to be familiar with her. He denied any prior abdominal surgery or abdominal trauma. He claimed he was just admitted to [facility] over the past 1-2 months, for the above. He claimed he had an EGD at [facility] within the past 2 weeks, which was "normal". He claimed he had a gastric scintiscan at [place] within the past 2 months, which was "normal". He aslo claimed he had an UGI series at [place] recently, which was "normal". He stated he had a colonoscopy at [place] within the past 2-3 years, which was "normal". He denied taking any NSAIDS. There is no FHx GI Ca, GI disease, or inherited liver disease. The patient most recently presented to the [facility] 12/12/17 at 10:39 a.m., BIBA from home, allegedly sent in by PMD "for TPN", although he had a normal albumin. *When pressed further regarding this, the patient could not recall who sent him to the [facility] ER. His abdominal pain was initially "8 out of 10". There was no positional component. His abdominal pain, which was difficult for him to qualify , was possibly worse after eating. He denied any rashes or acute arthralgias. He denied any gross hematuria, hemoptysis, CP, or SOB. He denied any CAD DETAILER sx or LI, aside from ? peripheral neuropathy. Upon presentatiom, BP 125/80, P 117, R 18, T 98.7, O2 sat RA 97%. The patient claimed his abdominal pain had been going on for at least 3 months, with unintentional weight loss of 40 pounds over this time. He is 5'10", 131 lbs on admission, with BMI 18.79. He was given IV NS, Haldol (for nausea), MS, & Lyrica. *He reportedly was intolerant of Reglan in the past, as it made him feel like he was "jumping out of his skin". Admission Utox: + cannabis (see below; repeatedly positive). The pt was admitted to the hospitalist service & seen by endocrine. He was felt to be "sick euthyroid". He had mild ketosis with + acetone & HCO3 18. A carbohydrate 1 diet was rxd & insulin was adjusted per Dr. Hutchison. The patient has had absolutely no witnessed vomiting since admission, & in fact, has eaten pizza & hamburger tonight uneventfully. His symptoms are subjective at best, & he has been getting MS. There are no fevers, chills, night sweats, GERD, definite early satiety, jaundice, odynophagia, dyspahagia, hematemesis, melena, or rectal bledding. He currently denied any diarrhea, constipation, obstipation, change in stool caliber, or tenesmus. He refused a digital rectal exam & stated "he had one within the past year, which was normal". He has had numerous recent CT AP with IV contrast, none of which have shown any significant pathology. 09/02/17: TChol 200, TG 96, HDL 58, LDL 123, Vit D 31.1 12/09/17: nl lipase 52 (nl lipase on 12/01/17 & 12/05/17, as well). 12/12/17: Admission labs 11:45 a.m.- WBC 8.7, H/H 16.5/47.1, MCV 88.8, RDW 13.1, PLT 265, glu 292, BUN/Cr 13/0.6, GFR > 60, Na 131, K 4.5, HCO3 18, AG 20, serum osmolality 285, acetone + 1:8, lactate 1.3-> 1.0, Ca 9.5, alb 4.2, glob 2.7, TBil 1.1, alk phos 69, AST 17, ALT 23, HgbA1C 9.1, low TSH 0.256, low TT3 0.62, nl FT4 1.69. 12/12/17: U/A- clear yellow, 1.025, 6.0, glu > 1000, ketone > 80; micro- otherwise neg; neg nitrite, neg esterase. 12/12/17: Utox: + cannabis 74.60. 12/09/17: CT ABD & PELVIS W IV CONTRAST- No acute CT abnormality to explain the patient's symptoms. Mild atrophy of pancreas, without change. Normal liver, GB, spleen, adrenals, kidneys, SB, LB, AP, aorta, & prostate. No adenopathy. No hernia. DJD. Cystic changes adjacent to the SI joints, which are chronic, without change. 12/12/17: EKG- ST @ 100, nl axis, LAE, IRBBB, flat T in L, NSST. Allergies/Medications Allergies: Coded Allergies: metoclopramide (From REGLAN) (Severe, "FEEL LIKE IM JUMPING OUT OF MY SKIN" ) nicotine (UNKNOWN PER PT 12/09/17) NICODERM PATCH Home Med List: Albuterol Sulfate (Proair Hfa) 90 MCG HFA.AER.AD 2 PUF INH Q4-6 PRN PRN SHORTNESS OF BREATH (Reported) Amitriptyline HCl 25 MG TABLET 1 TAB PO QPM SLEEP (Reported) Insulin Aspart (Novolog) (Unknown Strength) VIAL (Unknown Dose) SC TID DIABETES (Reported) Insulin-Lantus (Lantus) 100 UNIT/ML VIAL 14 UNITS SC BID DIABETES (Reported) Ondansetron (Zofran Odt) 4 MG TAB.RAPDIS 1 TAB SL TID PRN NAUSEA Pantoprazole Sodium 40 MG TABLET.DR 1 TAB PO BID GI (Reported) Pregabalin (Lyrica) 75 MG CAPSULE 1 CAP PO TID PAIN (Reported) Promethazine HCl 25 MG TABLET 1 TAB PO Q6P PRN NAUSEA Sertraline HCl 50 MG TABLET 1 TAB PO DAILY MENTAL HEALTH (Reported) Trazodone HCl 150 MG TABLET 1 TAB PO QPM SLEEP (Reported) Trimethobenzamide HCl (Tigan) 300 MG CAPSULE 1 CAP PO TID GI (Reported) Current Medications: Current Medications Sig/Patrica Start time Last Medication Dose Route Stop Time Status Admin Acetaminophen 650 MG Q6P PRN 12/12 1345 AC PO Acetaminophen 1,000 MG Q6P PRN 12/12 1345 AC IV Albuterol Sulfate 2 PUF Q4-6 PRN PRN 12/12 1400 AC INH Amitriptyline HCl 25 MG QPM 12/12 2100 AC 12/12 PO 2138 Enoxaparin Sodium 40 MG DAILY 12/13 0900 AC SC Haloperidol 0 .STK-MED ONE 12/12 1207 DC .ROUTE Haloperidol 5 MG ONCE ONE 12/12 1145 DC 12/12 IM 12/12 1146 1212 Insulin Aspart 0 TIDAC 12/12 1700 DC SC Insulin Aspart 0 TIDAC/HS 12/12 1700 AC 12/12 SC 2138 Insulin Detemir 7 UNITS BID 12/12 2100 DC SC Insulin Detemir 14 UNITS BID 12/12 2100 AC 12/12 SC 2138 Morphine Sulfate 2 MG Q4P PRN 12/12 1345 AC 12/12 IV 2137 Morphine Sulfate 4 MG ONCE ONE 12/12 1245 DC 12/12 IV 12/12 1246 1238 Morphine Sulfate 0 .STK-MED ONE 12/12 1237 DC .ROUTE Omeprazole 40 MG BID 12/12 2100 AC 12/12 PO 213 Ondansetron HCl 4 MG Q6P PRN 12/12 2130 AC IV Ondansetron HCl 4 MG Q6P PRN 12/12 1345 DC IV Pregabalin 75 MG TID 12/12 1400 AC 12/12 PO 213 Sertraline HCl 50 MG DAILY 12/13 0900 AC PO Sodium Chloride 1,000 ML Q10H 12/12 1530 AC 12/12 IV 12/13 1129 1530 Sodium Chloride 1,000 ML BOLUS ONE 12/12 1145 DC 12/12 IV 12/12 1244 1212 Sodium Chloride 1,000 ML BOLUS ONE 12/12 1145 DC 12/12 IV 12/12 1244 1212 Trazodone HCl 150 MG QPM PRN 12/12 1400 AC 12/12 PO 2144 Past History Travel History Traveled to [place] past 21 day No Medical History Blood Transfusion Hx: No Neurological: peripheral neuropathy (per chart) EENT: NONE Cardiovascular: NONE Respiratory: asthma Gastrointestinal: irritable bowel syndrome Hepatic: NONE Renal: NONE Musculoskeletal: NONE Psychiatric: depression Endocrine: DM type 1 gastroparesis Blood Disorders: NONE Cancer(s): NONE 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 FATHER, , Age 49; Cause: Myocardial infarct. Psychosocial History Where Do You Live? Home Who Do You Live With? PARTNER/GIRLFRIEND Services at Home: None Primary Language: Latvian Smoking Status: Current Everyday Smoker ETOH Use: denies use Illicit Drug Use: marijuana Living Will? no Power of Garage Door Hanger/HCP? no Other Social History: Single. Lives with girlfriend. No children. 20 pk yr cigarettes. Denies EtOH. + Cannabis 3x/week. Denies IVDA or additional street drugs. Was on out rx Percocet. 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 Functional Ability ADLs Independent: dressing, eating, toileting, bathing. Ambulation: independent IADLs Independent: shopping, housework, finances, food prep, telephone, transportation , medication admin. Employment History Employment: Unemployed Profession/Employer: previously was [employer] Review of Systems Review of Systems: Full 14 point ROS otherwise noncontributory & as above. Review of Systems Constitutional: Reports: unexplained weight loss. Denies: chills, diaphoresis, fever, malaise, weakness. EENTM: Denies: blurred vision, double vision, visual changes, eye pain, eye drainage, eye tearing, icterus, ear discharge, ear pain, ear redness, hearing changes, nasal congestion, epistaxis, nasal pain, throat pain, throat swelling, mouth pain, tooth pain. Cardiovascular: Denies: chest pain, edema, orthopena, palpitations, peripheral edema, syncope. Respiratory: Denies: cough, hemoptysis, orthopnea, short of breath, sputum production, stridor, wheezing. GI: Reports: abdominal pain, nausea, vomiting. Denies: bloating, constipation, diarrhea, distention, bowel incontinence, melena, bloody stool, changes in stool , steatorrhea. Genitourinary: Denies: discharge, dysuria, frequency, hematuria, hesitation, nocturia, pain, urgency. Musculoskeletal: Denies: see HPI, back pain, gout, joint pain, joint swelling, muscle pain, muscle stiffness, neck pain. Skin: Denies: cysts, change in skin color, change in hair/nails, dryness, erythema, jaundice, lesions, lymphangitis, lumps, moles, rash. Neurological/Psychological: Reports: depressed, emotional problems. Denies: anxiety, ataxia, cognitive dysfunction, confusion, dementia, headache, numbness, paresthesia, pre-existing deficit, petit mal seizures, tingling, tremors, tonic-clonic seizures, unable to move lower ext, unable to move upper ext, weakness. Hematologic/Endocrine: Reports: polyuria, polydipsia. Denies: bruising, bleeding. Immunologic/Allergic: Denies: splenectomy, HIV/AIDS, lymphadenopathy. All Other Systems: Reviewed and Negative Exam & Diagnostic Data Vital Signs and I&O Vital Signs Date Time Temp Pulse Resp B/P B/P Pulse O2 O2 Flow FiO2 Mean Ox Delivery Rate 12/12 1512 97.8 87 18 100/62 98 Room Air 12/12 1334 98.6 93 20 116/78 97 Room Air 12/12 1048 98.7 117 18 125/80 97 Room Air Intake & Output 12/12 0400 12/11 04012/10 0400 Intake Total 1999 Output Total 450 Balance 1550 Intake, IV 2000 Output, Urine 450 Patient 131 lb Weight Weight Reported by Patient Measurement Method Physical Exam: Well-developed, well-nourished, thin male, slightly agitated, in no apparent distress. Somewhat flat afffect. Sclera anicteric. Conjunctiva pink. Oropharynx clear. No oral thrush. No aphthous ulcers. There is no adenopathy, thyromegaly, or JVD. No peripheral stigmata of inflammatory bowel disease or chronic liver disease on exam. No spiders on the anterior chest wall. No gynecomastia. No CVA tenderness. No spine tenderness. Lungs: clear to A&P, with slightly prolonged expiratory phase. No wheezing, rales, or rhonchi. Heart exam: regular rate rhythm, S1 and S2, without any murmur. Abdominal exam: normal bowel sounds, soft scaphoid belly, essentially nontender (scant subjective mid-left abdomianl tenderness), without guarding or rebound. No mass. No organomegaly. No fluid shift. No pulsatile mass. No epigastric bruit. Digital rectal exam: refused by patient "normal within the past year". Extremities without C, C, or E. No palpable cords. No rash. No acute arthropathy. No palmar erythema. No Dupuytren' s contractures. Distal pulses 1+ bilaterally. DTRs 2+ bilaterally. Right handed. CN II-XII intact. Motor 5/5 B/L. Alert and oriented x 3. No tremor. No asterixis. Results Pertinent Lab Results: Laboratory Tests 12/12 12/12 12/12 2212 1713 1248 Chemistry Sodium Pending Potassium Pending Chloride Pending Carbon Dioxide Pending Anion Gap Pending BUN Pending Creatinine Pending BUN/Creatinine Ratio Pending Lactic Acid (0.7 - 2.1 mmol/L) 1.0 Urines Urine Color (YEL,AMB,STR) YEL Urine Clarity (CLEAR) CLEAR Urine pH (5.0 - 8.0) 6.0 Ur Specific Angie (1.001 - 1.035) 1.025 Urine Protein (NEG,<30 MG/DL) NEG Urine Ketones (NEG) >=80 Urine Nitrite (NEG) NEG Urine Bilirubin (NEG) NEG Urine Urobilinogen (0.1 - 1.0 EU/dl) 0.2 Ur Leukocyte Esterase (NEG) NEG Ur Microscopic EXAM NOT REQUIRED Urine Hemoglobin (NEG) NEG Urine Glucose (N MG/DL) >=1000 H 12/12 12/12 1245 1145 Chemistry Sodium (137 - 145 mmol/L) 131 L Potassium (3.5 - 5.1 mmol/L) 4.5 Chloride (98 - 107 mmol/L) 93 L Carbon Dioxide (22 - 30 mmol/L) 18 L Anion Gap (5 - 16) 20 H BUN (9 - 20 mg/dL) 13 Creatinine (0.7 - 1.2 mg/dL) 0.6 L Estimated GFR (>60 ml/min) > 60 BUN/Creatinine Ratio (7 - 25 %) 21.7 Glucose (65 - 99 mg/dL) 292 H Hemoglobin A1c (4.2 - 5.8 %) 9.1 H Serum Osmolality (285 - 295 MOSM/KG) 285 Lactic Acid (0.7 - 2.1 mmol/L) 1.3 Calcium (8.4 - 10.2 mg/dL) 9.5 Total Bilirubin (0.2 - 1.3 mg/dL) 1.1 AST (17 - 59 U/L) 17 ALT (21 - 72 U/L) 23 Alkaline Phosphatase (< 127 U/L) 69 Total Protein (6.3 - 8.2 g/dL) 6.9 Albumin (3.5 - 5.0 g/dL) 4.2 Globulin (1.9 - 4.2 gm/dL) 2.7 Albumin/Globulin Ratio (1.1 - 2.2 %) 1.6 TSH (0.270 - 4.200 uIU/mL) 0.256 L Free T4 (0.64 - 1.79 ng/dL) 1.69 Total T3 (0.97 - 1.69 ng/mL) 0.62 L Hematology CBC w Diff NO MAN DIFF REQ WBC (4.8 - 10.8 /CUMM) 8.7 RBC (4.70 - 6.10 /CUMM) 5.30 Hgb (14.0 - 18.0 G/DL) 16.5 Hct (42 - 52 %) 47.1 MCV (80.0 - 94.0 FL) 88.8 MCH (27.0 - 31.0 PG) 31.2 H MCHC (33.0 - 37.0 G/DL) 35.1 RDW (11.5 - 14.5 %) 13.1 Plt Count (130 - 400 /CUMM) 265 MPV (7.4 - 10.4 FL) 8.6 Gran % (42.2 - 75.2 %) 52.5 Lymphocytes % (20.5 - 51.1 %) 38.2 Monocytes % (1.7 - 9.3 %) 7.7 Eosinophils % (0 - 5 %) 1.0 Basophils % (0.0 - 2.0 %) 0.6 Absolute Granulocytes (1.4 - 6.5 /CUMM) 4.5 Absolute Lymphocytes (1.2 - 3.4 /CUMM) 3.3 Absolute Monocytes (0.10 - 0.60 /CUMM) 0.7 H Absolute Eosinophils (0.0 - 0.7 /CUMM) 0.1 Absolute Basophils (0.0 - 0.2 /CUMM) 0.1 Toxicology Urine Opiates Screen (>2000 NG/ML) 170 Methadone Screen (>300 NG/ML) 55 Barbiturate Screen (>200 NG/ML) < 60 Ur Phencyclidine Scrn (>25 NG/ML) < 6.00 Amphetamines Screen (>1000 NG/ML) 205 U Benzodiazepines Scrn (>200 NG/ML) < 85 Urine Cocaine Screen (>300 NG/ML) < 50 Urine Cannabis Screen (>50 NG/ML) 74.60 H Acetone Level (NEGATIVE) POSITIVE AT 1:8 DIL Imaging/Other Studies: 12/09/17: CT ABD & PELVIS W IV CONTRAST- No acute CT abnormality to explain the patient's symptoms. Mild atrophy of pancreas, without change. Normal liver, GB, spleen, adrenals, kidneys, SB, LB, AP, aorta, & prostate. No adenopathy. No hernia. DJD. Cystic changes adjacent to the SI joints, which are chronic, without change. 12/12/17: EKG- ST @ 100, nl axis, LAE, IRBBB, flat T in L, NSST. Assessment/Plan Assessment/Recommendations: 42 y/o male with limited medical records at [facility] & numerous recent trips to the [facility] (12/01/17, 12/05/17, 12/09/17, 12/12/17), for nausea, vomiting, intermittent ( rare) diarrhea, & poorly localized, diffuse abdominal pain. He apparently has been to numerous other ERs as well. He is a poorly controlled IDDM (dxd age 28), with hx peripheral neuropathy, asthma & 20 pk yr cigarette smoking. He denied any EtOH or illicit drug use, aside form cannabis. He claimed he stopped cannabis due to possible cannabinoid hyperemesis, which was felt to be the case at [place], but his nausea recurred off cannabis, so he resumed it (smokes > 3x/ week). He denied any rx narcotics, but later stated he was sent home from the ER on Percocet. He noted polyuria & polydypsia. One note stated he reportedly has DM gastroparesis, but the patient denied this. He has major depression & is on numerous psych meds. He claimed he was previously followed for primary care by Dr. Paula, but "switched to a PCP in [place], whose name he can't recall". Although the computer states his PMD is Dr. Zelaya, he did not seem to be familiar with her. He denied any prior abdominal surgery or abdominal trauma. He claimed he was just admitted [facility] over the past 1-2 months, for the above. He claimed he had an EGD at [facility] within the past 2 weeks, which was "normal". He claimed he had a gastric scintiscan at [place] within the past 2 months, which was "normal". He aslo claimed he had an UGI series at [place] recently, which was "normal". He stated he had a colonoscopy at [place] within the past 2-3 years, which was "normal". He denied taking any NSAIDS. There is no FHx GI Ca, GI disease, or inherited liver disease. The patient most recently presented to the [facility] 12/12/17 at 10:39 a.m., BIBA from home, allegedly sent in by PMD "for TPN", although he had a normal albumin. *When pressed further regarding this, the patient could not recall who sent him to the [facility]. His abdominal pain was initially "8 out of 10". There was no positional component. His abdominal pain, which was difficult for him to qualify , was possibly worse after eating. He denied any rashes or acute arthralgias. He denied any gross hematuria, hemoptysis, CP, or SOB. He denied any CAD DETAILER sx or LI, aside from ? peripheral neuropathy. Upon presentatiom, BP 125/80, P 117, R 18, T 98.7, O2 sat RA 97%. The patient claimed his abdominal pain had been going on for at least 3 months, with unintentional weight loss of 40 pounds over this time. He is 5'10", 131 lbs on admission, with BMI 18.79. He was given IV NS, Haldol (for nausea), MS, & Lyrica. *He reportedly was intolerant of Reglan in the past, as it made him feel like he was "jumping out of his skin". Admission Utox: + cannabis (see below; repeatedly positive). The pt was admitted to the hospitalist service & seen by endocrine. He was felt to be "sick euthyroid". He had mild ketosis with + acetone & HCO3 18. A carbohydrate 1 diet was rxd & insulin was adjusted per Dr. Hutchison. The patient has had absolutely no witnessed vomiting since admission, & in fact, has eaten pizza & hamburger tonight uneventfully. His symptoms are subjective at best, & he has been getting MS. There are no fevers, chills, night sweats, GERD, definite early satiety, jaundice, odynophagia, dyspahagia, hematemesis, melena, or rectal bledding. He currently denied any diarrhea, constipation, obstipation, change in stool caliber, or tenesmus. He refused a digital rectal exam & stated "he had one within the past year, which was normal". He has had numerous recent CT AP with IV contrast, none of which have shown any significant pathology. 09/02/17: TChol 200, TG 96, HDL 58, LDL 123, Vit D 31.1 12/09/17: nl lipase 52 (nl lipase on 12/01/17 & 12/05/17, as well). 12/12/17: Admission labs 11:45 a.m.- WBC 8.7, H/H 16.5/47.1, MCV 88.8, RDW 13.1, PLT 265, glu 292, BUN/Cr 13/0.6, GFR > 60, Na 131, K 4.5, HCO3 18, AG 20, serum osmolality 285, acetone + 1:8, lactate 1.3-> 1.0, Ca 9.5, alb 4.2, glob 2.7, TBil 1.1, alk phos 69, AST 17, ALT 23, HgbA1C 9.1, low TSH 0.256, low TT3 0.62, nl FT4 1.69. 12/12/17: U/A- clear yellow, 1.025, 6.0, glu > 1000, ketone > 80; micro- otherwise neg; neg nitrite, neg esterase. 12/12/17: Utox: + cannabis 74.60. 12/09/17: CT ABD & PELVIS W IV CONTRAST- No acute CT abnormality to explain the patient's symptoms. Mild atrophy of pancreas, without change. Normal liver, GB, spleen, adrenals, kidneys, SB, LB, AP, aorta, & prostate. No adenopathy. No hernia. DJD. Cystic changes adjacent to the SI joints, which are chronic, without change. 12/12/17: EKG- ST @ 100, nl axis, LAE, IRBBB, flat T in L, NSST. *As of 12/12/17, at the time of initial GI consultation, the patient's symptoms were subjective at best. He had a relatively benign abdominal exam & had absolutely no vomiting since admission. In fact, he ate pizza & hamburger the p.m of admission, without difficulty. He was getting MS, although he denied any illicit drug use, aside from cannabis. His care was extremely fragmented & he became agitated when questioned about his prior workup. He could not recall the name of his PMD, nor the names of his GI MDs at [facility] [place]. He had been to multiple ERs within the past few weeks & had been admitted to [facility] weeks ago, where he reportedly had a "normal EGD". He reportedly had a "normal GES & normal barium studies from above" as an inpt at [place] within the past 1-2 months. He also claimed he had a normal colonoscopy in [place] 2-[address] AP with IV cont- NAD. *Recent workup reportedly w/o PUD or neoplasm. Numerous Utox: + cannabis. He denied any significant diarrhea, just chronic abdominal pain, nausea & vomiting, the latter not witnessed here, & the former 2 sx being subjective in nature. Vast differential dx includes cyclical nausea & vomiting syndrome, rule out gastroparesis, rule out malabsorption and/or pancreatic insufficiency, rule out malingering and/or drug seeking, rule out major depression, rule out celiac axis syndrome from the alleged weight loss (although this is usually associated with early satiety, which the pt denied), doubt intestinal angina, r/o HIV, sincerely doubt other more esoteric entities, such as acute intermittent porphyria, FMF, etc. *SUGGEST- Carbohydrate 1 diet, per endocrine. Calorie count. Try to limit narcotic analgesics, which can exacerbate gastroparesis. PPI. Zofran. Tigan. *Need records from [facility], including recent [facility] E[facility] from 2 weeks ago, GES & barium studies from above from [facility] within the past 2 months, & previous [place] colonoscopy. Check full Hep A, B, & C serologies, & HIV. Check fasting serum carotene, celiac panel (IgA, tTG Ab, & DGP Ab). Check fecal elastase. Check stool Ag H. pylori. Consider UGISBFT vs. CTE (if not recently done; had CT AP with IV cont). Consider MRA abdomen. Advise psychiatry input. Continue SSRI & Amitriptylline. If evidence of gastroparesis on GES, consider trial of Emycin (intolerant of Reglan). If further wieght loss & nausea , will defer to medical team for CT chest (smoker)/CT head. Insulin tx per endocrine.*At the moment, as the patient is eating uneventfully & has no objective findings, along with the fact that he has had 2 relatively recent GI workups elsewhere ([facility]), I have no plans for any invasive inpt GI workup. The above was discussed with the medical housestaff in detail this p.m. [facility] inpt GI follow-up as needed. Problem List: 1. Abdominal pain 2. Nausea & vomiting Copies To: Rosa CAGLE,Sangita; Hugo CAGLE,Saeid White; Foster CAGLE,Ansonn Consult Acknowledgment - Thank you for your consult request.
[2017-12-12 22:10] VITALS: BP 126/74
[2017-12-13 06:45] VITALS: BP 110/80
--- NOTE | 2017-12-13 07:19 | PN- Housestaff ---
Ollie Worrell 12/13/17 0719: Subjective Follow-up For: Nausea, vomiting, abdominal pain Complaints: pain scale (0-10) (8) Subjective: Patient was seen and examined at the bedside. Patient was visibly in distress, complained of abdominal pain 8 out of 10. Patient states he vomited earlier this morning, but was able to eat yesterday. Patient maintained aggressive facies and low responsiveness. No other complaints. Review of Systems Constitutional: Reports: no symptoms. Gastrointestinal: Reports: abdominal pain, vomiting (not witnessed). Objective Last 24 Hrs of Vital Signs/I&O Vital Signs Date Time Temp Pulse Resp B/P B/P Pulse O2 O2 Flow FiO2 Mean Ox Delivery Rate 12/13 0645 98.0 76 20 110/80 99 Room Air 12/12 2210 97.3 73 16 126/74 99 Room Air 12/12 1512 97.8 87 18 100/62 98 Room Air 12/12 1334 98.6 93 20 116/78 97 Room Air Intake & Output 12/13 1600 12/13 0800 12/13 0000 Intake Total 1040 540 Output Total Balance 1040 540 Intake, IV 800 300 Intake, Oral 240 240 Physical Exam General Appearance: Alert, Oriented X3, Cooperative, Moderate Distress Skin: No Rashes Skin Temp/Moisture Exam: Warm/Dry HEENT: Atraumatic, PERRLA, EOMI Neck: Supple, No JVD, No thryomegaly Cardiovascular: Regular Rate, Normal S1, Normal S2, No Murmurs Lungs: Clear to Auscultation, Normal Air Movement Abdomen: Soft, No Hepatospenomegaly, tenderness to palption. no guarding. Neurological: Normal Speech, Strength at 5/5 X4 Ext, Normal Tone, Sensation Intact Extremities: No Clubbing, No Cyanosis, No Edema Assessment/Plan Assessment: 42 yo male brought in by ambulance for nausea, vomiting and abdominal pain. Patient states that he has been experiencing this particular problem for the past 3 months. Differentials: gastroparesis/cyclic vomiting syndrome; DKA, HHS Problem list/plan: Nausea/vomiting/abdominal pain -Vitals and monitor I/O per protocol -NovoLog sliding scale, Accu-Chek pain able carotene, celiac panel, fecal elastase, H pylori. Chronic conditions (hyperglycemia, peripheral neuropathy, asthma, IV) -HbA1c poorly controlled (9.1) Problem List: 1. Abdominal pain 2. Nausea & vomiting Pain Ratin Pain Location: abdomen Pain Goal: Pain 4 or less Pain Plan: Tylenol, morphine but decreasing dose Tomorrow's Labs & Rationales: cbc, bep to follow malnutrition Discharge Plan Stable for Discharge? No Sangita Lee 12/13/17 1133: Attending MD Review Statement Attending Statement Attending MD Statement: examined this patient, discuss w/resident/PA/FAST BRIM POUNCER, agreed w/resident/PA/FAST BRIM POUNCER, discussed with family, reviewed EMR data (avail), discussed with nursing, discussed with case mgmt, reviewed images, amended to note Attending Assessment/Plan: Patient with insulin dependinent diabetes mellitus with vomiting is admitted for unocntrolled hyperglycemia and intractbale vomitng likely gastroparesis and gastritis. labs noted. ph 7.49 on admission. AG closed. Mild ketosis on presentation. Overnight complaints of nausea but no witnessed vomiting. Requesting pain meds. Blood sugars better controlled this am. GI and endo appreciated. Continue with IVFs, obtain EGD results/medical records. iv ppi. IDDM uncontrolled: Endo follow up. Basal insulin and RISS sliding scale as needed. gi/dvt prophylaxis Wean off narcotics as can worsen gastroparesis. Tylenol for pain control, Avoid marijuana. Monitor clinically and antiicipate discharge as clinical conidtion progresses.
--- NOTE | 2017-12-13 12:43 | PN- Diabetes ---
See Addendum Assessment/Plan Diabetes Assessment: 42 y/o male with hx of DM type 1 which was diagnosed when he was 28 years old and has been complicated with diabetic gastroparesis. Lately he has lost approximately 40 pounds. At home, he was on Lantus 14 units twice a day and Novolog on an average 6 units before meals. He presented with nausea, vomiting and abdominal pain for several days. In ER, blood work showed mildly ketosis with positive acetone and bicarb of 18. He was put on Levemir 14 units twice a day. Novolog coverage before meals and Novolog coverage at bedtime. His FSGs were 456, 282, 152 and 104. Plan: continue the current insulin regimen for now; monitor FSGs. will follow. Subjective Subjective: He still has abdominal discomfort this morning. Objective Last 24 Hrs of Vital Signs/I&O Vital Signs Date Time Temp Pulse Resp B/P B/P Pulse O2 O2 Flow FiO2 Mean Ox Delivery Rate 12/13 0645 98.0 76 20 110/80 99 Room Air 12/12 2210 97.3 73 16 126/74 99 Room Air 12/12 1512 97.8 87 18 100/62 98 Room Air 12/12 1334 98.6 93 20 116/78 97 Room Air Intake & Output 12/13 1600 12/13 0800 12/13 0000 Intake Total 1040 540 Output Total Balance 1040 540 Intake, IV 800 300 Intake, Oral 240 240 Findings Pertinent Lab/Ky Results: Laboratory Tests 12/13 12/13 12/12 12/12 0822 0822 2212 1713 Chemistry Sodium (137 - 145 mmol/L) 136 L 128 L Potassium (3.5 - 5.1 mmol/L) 3.8 4.1 Chloride (98 - 107 mmol/L) 99 98 Carbon Dioxide (22 - 30 mmol/L) 25 22 Anion Gap (5 - 16) 12 8 BUN (9 - 20 mg/dL) 9 14 Creatinine (0.7 - 1.2 mg/dL) 0.5 L 0.6 L Estimated GFR (>60 ml/min) > 60 > 60 BUN/Creatinine Ratio (7 - 25 %) 18.0 23.3 Glucose (65 - 99 mg/dL) 165 H Serum Osmolality (285 - 295 MOSM/KG) 282 L Lactic Acid (0.7 - 2.1 mmol/L) 1.0 Carotene Pending Immunology IgA Pending Tiss Transglutamin IgG Pending Tiss Transglutamin IgA Pending Thyroglobulin Antibody (< 61 U/mL) 18 Thyroid Peroxidase Ab (< 61 U/mL) 71 H Anti-Gliadin IgG Ab Pending Anti-Gliadin IgA Ab Pending Serology Hepatitis A IgM Ab (NONREACTIVE) NONREACTIVE Hep Bs Antigen (NONREACTIVE) NONREACTIVE Hep B Core IgM Ab Conf (NONREACTIVE) NONREACTIVE Hepatitis C Antibody (NONREACTIVE) NONREACTIVE HIV 1&2 Ab Western Blot (NONREACTIVE) NONREACTIVE 12/12 12/12 1248 1245 Toxicology Urine Opiates Screen (>2000 NG/ML) 170 Methadone Screen (>300 NG/ML) 55 Barbiturate Screen (>200 NG/ML) < 60 Ur Phencyclidine Scrn (>25 NG/ML) < 6.00 Amphetamines Screen (>1000 NG/ML) 205 U Benzodiazepines Scrn (>200 NG/ML) < 85 Urine Cocaine Screen (>300 NG/ML) < 50 Urine Cannabis Screen (>50 NG/ML) 74.60 H Urines Urine Color (YEL,AMB,STR) YEL Urine Clarity (CLEAR) CLEAR Urine pH (5.0 - 8.0) 6.0 Ur Specific Dafter (1.001 - 1.035) 1.025 Urine Protein (NEG,<30 MG/DL) NEG Urine Ketones (NEG) >=80 Urine Nitrite (NEG) NEG Urine Bilirubin (NEG) NEG Urine Urobilinogen (0.1 - 1.0 EU/dl) 0.2 Ur Leukocyte Esterase (NEG) NEG Ur Microscopic EXAM NOT REQUIRED Urine Hemoglobin (NEG) NEG Urine Glucose (N MG/DL) >=1000 H
[2017-12-13 14:24] VITALS: BP 108/80
[2017-12-13 21:32] VITALS: BP 110/70
[2017-12-14 06:40] VITALS: BP 110/76
--- NOTE | 2017-12-14 07:04 | PN- Housestaff ---
Ollie Worrell 12/14/17 0704: Subjective Follow-up For: Nausea, vomiting, abdominal pain Complaints: pain scale (0-10) (continued abdominal pain) Subjective: Patient seen and examined at bedside. Patient still endorses 8 out of 10 abdominal pain. Patient ate roughly half of his breakfast without any vomiting but endorses nausea. Otherwise no complaints. Review of Systems Constitutional: Reports: no symptoms. Cardiovascular: Reports: no symptoms. Respiratory: Reports: no symptoms. Gastrointestinal: Reports: abdominal pain, nausea. Musculoskeletal: Reports: no symptoms. Skin: Reports: no symptoms. Objective Last 24 Hrs of Vital Signs/I&O Vital Signs Date Time Temp Pulse Resp B/P B/P Pulse O2 O2 Flow FiO2 Mean Ox Delivery Rate 12/14 0640 98.2 81 20 110/76 98 Room Air 12/13 2132 98.1 84 17 110/70 97 Room Air 12/13 1424 98.2 85 18 108/80 99 Room Air Intake & Output 12/14 1600 12/14 0800 12/14 0000 Intake Total 1280 480 Output Total 1150 Balance 1280 -670 Intake, IV 800 Intake, Oral 480 480 Number 0 Bowel Movements Output, Urine 1150 Physical Exam General Appearance: Alert, Oriented X3, Cooperative, Moderate Distress Skin: No Rashes, No Breakdown Skin Temp/Moisture Exam: Warm/Dry HEENT: Atraumatic, PERRLA, EOMI Neck: Supple, No JVD Cardiovascular: Regular Rate, Normal S1, Normal S2, No Murmurs Lungs: Clear to Auscultation, Normal Air Movement Abdomen: Soft, No Hepatospenomegaly, tender to palpation globally Neurological: Normal Speech, Strength at 5/5 X4 Ext, Normal Tone Extremities: No Clubbing, No Cyanosis, No Edema Current Medications: Current Medications Sig/Patrica Start time Last Medication Dose Route Stop Time Status Admin Acetaminophen 650 MG Q6P PRN 12/12 1345 DCD 12/13 PO 0746 Acetaminophen 1,000 MG Q6P PRN 12/12 1345 DCD 12/13 IV 1606 Albuterol Sulfate 2 PUF Q4-6 PRN PRN 12/12 1400 DCD INH Amitriptyline HCl 25 MG QPM 12/12 2100 DCD 12/13 PO 2126 Dextrose 25 GM ONCE ONE 12/13 1615 DC 12/13 IV 12/13 1616 1621 Enoxaparin Sodium 40 MG DAILY 12/13 0900 DCD 12/14 SC 0847 Insulin Aspart 0 TIDAC/HS 12/12 1700 DCD 12/14 SC 0848 Insulin Detemir 10 UNITS BID 12/13 2100 DCD 12/14 SC 0848 Insulin Detemir 14 UNITS BID 12/12 2100 DC 12/13 SC 0823 Metoclopramide HCl 5 MG AC 12/14 1200 DCD PO Morphine Sulfate 2 MG Q8P PRN 12/13 0930 DC 12/14 IV 0222 Omeprazole 40 MG BID 12/14 0915 DCD PO Ondansetron HCl 4 MG Q6-PRN PRN 12/14 0915 DCD PO Ondansetron HCl 4 MG Q6P PRN 12/12 2130 DC 12/13 IV 1606 Pantoprazole Sodium 40 MG DAILY 12/13 0900 DC 12/14 IV 0848 Patient Medication 1 ED ONE ONE 12/13 1715 AK 12/13 Teaching ED 12/13 1716 1752 Potassium Chloride 40 MEQ ONCE ONE 12/14 0845 DC 12/14 PO 12/14 0846 0846 Pregabalin 75 MG TID 12/12 1400 DCD 12/14 PO 0847 Sertraline HCl 50 MG DAILY 12/13 0900 DCD 12/14 PO 0847 Sodium Chloride 1,000 ML Q10H 12/13 0345 DC 12/13 IV 12/13 2344 2142 Tramadol HCl 50 MG Q6 PRN 12/14 0900 DCD 12/14 PO 1049 Trazodone HCl 150 MG QPM PRN 12/12 1400 DCD 12/13 PO 2143 Last 24 Hrs of Lab/Ky Results Last 24 Hrs of Labs/Mics: Laboratory Tests 12/14/17 0647: Anion Gap 9, Estimated GFR > 60, BUN/Creatinine Ratio 12.0, CBC w Diff NO MAN DIFF REQ, RBC 4.61 L, MCV 90.4, MCH 31.1 H, MCHC 34.4, RDW 13.3, MPV 8.6, Gran % 41.3 L, Lymphocytes % 44.9, Monocytes % 8.7, Eosinophils % 4.4, Basophils % 0.7, Absolute Granulocytes 2.3, Absolute Lymphocytes 2.5, Absolute Monocytes 0.5 , Absolute Eosinophils 0.2, Absolute Basophils 0 Assessment/Plan Assessment: 42 yo male brought in by ambulance for nausea, vomiting and abdominal pain. Patient states that he has been experiencing this particular problem for the past 3 months. Differentials: gastroparesis/cyclic vomiting syndrome; DKA, HHS Problem list/plan: Nausea/vomiting/abdominal pain -Vitals and monitor I/O per protocol -NovoLog sliding scale, Accu-Chek pain discharge on tramadol serum carotene, celiac panel, fecal elastase, H pylori. Awaiting mresults Chronic conditions (hyperglycemia, peripheral neuropathy, asthma, IV) -HbA1c poorly controlled (9.1) -followup outpatient with endocrinology, Dr. Hutchison Problem List: 1. Abdominal pain 2. Nausea & vomiting 3. Visceral hypersensitivity syndrome Pain Ratin Pain Location: abdomen Pain Goal: Pain 4 or less Pain Plan: tylenol and tramadol; dc morphine Tomorrow's Labs & Rationales: none, discharged Discharge Plan Discharge Disposition: home Stable for Discharge? Yes Anticipated Discharge (Day): today If Discharged Today/In 24 Hrs: W-10/discharge paper done, CMR done Sangita Lee 12/14/17 1113: Attending MD Review Statement Attending Statement Attending MD Statement: examined this patient, discuss w/resident/PA/MAINFRAME SYSTEMS ADMINISTRATOR, agreed w/resident/PA/MAINFRAME SYSTEMS ADMINISTRATOR, discussed with family, reviewed EMR data (avail), discussed with nursing, discussed with case mgmt, reviewed images, amended to note Attending Assessment/Plan: Patient with insulin dependinent diabetes mellitus with vomiting is admitted for unocntrolled hyperglycemia and intractbale vomitng likely gastroparesis with evidence negative so far and erosive gastritis. Overnight feeling better. No nausea. Tolerated PO breakfast this am. GI and endo appreciated. Disocntinue IVFs, PO ppi, Medical records suggestive of IDDM uncontrolled: Endo on board, insulin as per endo on discharge, Needs o/p follow up with Endo. Minimise narcotics for pain. Tylenol for pain control, Avoid marijuana. Anticipate dc soon as condition clinically improved.
[2017-12-14 07:57] LABS: ABSOLUTE BASOPHIL COUNT 0 /CUMM (0.0-0.2); ABSOLUTE EOSINOPHIL COUNT 0.2 /CUMM (0.0-0.7); ABSOLUTE GRANULOCYTE CT 2.3 /CUMM (1.4-6.5); ABSOLUTE LYMPH COUNT 2.5 /CUMM (1.2-3.4); ABSOLUTE MONOCYTE COUNT 0.5 /CUMM (0.10-0.60); BASOPHIL % 0.7 % (0.0-2.0); EOSINOPHIL % 4.4 % (0-5); GRANULOCYTE % 41.3 % (42.2-75.2); MEAN CORPUSCULAR HGB 31.1 PG (27.0-31.0); MEAN CORPUSCULAR HGB CONC 34.4 G/DL (33.0-37.0); MEAN CORPUSCULAR VOLUME 90.4 FL (80.0-94.0); MEAN PLATELET VOLUME 8.6 FL (7.4-10.4); PLATELET COUNT 223 /CUMM (130-400); RBC DISTRIBUTION WIDTH 13.3 % (11.5-14.5); RED BLOOD CELL CT 4.61 /CUMM (4.70-6.10); WHITE BLOOD CELL COUNT 5.5 /CUMM (4.8-10.8)
--- NOTE | 2017-12-14 08:33 | PN- Diabetes ---
Assessment/Plan Diabetes Assessment: 42 y/o male with hx of DM type 1 which was diagnosed when he was 28 years old and has been complicated with diabetic gastroparesis. Lately he has lost approximately 40 pounds. At home, he was on Lantus 14 units twice a day and Novolog on an average 6 units before meals. He presented with nausea, vomiting and abdominal pain for several days. In ER, blood work showed mildly ketosis with positive acetone and bicarb of 18. He was on Levemir 14 units twice a day. Novolog coverage before meals and Novolog coverage at bedtime. His FSG was down to 52 before dinner on 12/13. Levemir was decreased to 10 units twice a day and Novolog coverage before meals was adjusted as well. Novolog coverage before meals: FSG 80-150, 2 units 151-200, 3 units 201-250, 4 units 251-300, 5 units 301-350, 6 units 351-400, 7 units > 400, 8 units His FSGs were 52, 337 and 119. Plan: 1. okay to discontinue IVF; 2. replete K ; 3. consider Reglan 5 mg before meals; 4. continue protonix; 5. continue Zofran as needed; 6. continue the current insulin regimen for now; 7. monitorn FSGs and electrolytes. will follow. Subjective Subjective: He still feels nauseous and has mild abdominal pain. Objective Last 24 Hrs of Vital Signs/I&O Vital Signs Date Time Temp Pulse Resp B/P B/P Pulse O2 O2 Flow FiO2 Mean Ox Delivery Rate 12/14 0640 98.2 81 20 110/76 98 Room Air 12/13 2132 98.1 84 17 110/70 97 Room Air 12/13 1424 98.2 85 18 108/80 99 Room Air Intake & Output 12/14 1600 12/14 0800 12/14 0000 Intake Total 1280 480 Output Total 1150 Balance 1280 -670 Intake, IV 800 Intake, Oral 480 480 Number 0 Bowel Movements Output, Urine 1150 Findings Pertinent Lab/Ky Results: Laboratory Tests 12/14 0647 Chemistry Sodium (137 - 145 mmol/L) 138 Potassium (3.5 - 5.1 mmol/L) 3.4 L Chloride (98 - 107 mmol/L) 105 Carbon Dioxide (22 - 30 mmol/L) 24 Anion Gap (5 - 16) 9 BUN (9 - 20 mg/dL) 6 L Creatinine (0.7 - 1.2 mg/dL) 0.5 L Estimated GFR (>60 ml/min) > 60 BUN/Creatinine Ratio (7 - 25 %) 12.0 Hematology CBC w Diff Pending WBC Pending RBC Pending Hgb Pending Hct Pending MCV Pending MCH Pending MCHC Pending RDW Pending Plt Count Pending MPV Pending Gran % Pending Lymphocytes % Pending Monocytes % Pending Eosinophils % Pending Basophils % Pending Absolute Granulocytes Pending Absolute Lymphocytes Pending Absolute Monocytes Pending Absolute Eosinophils Pending Absolute Basophils Pending
[2017-12-14 08:47] LABS: HEMATOCRIT 41.7 % (42-52)
[2017-12-14] MEDS ORDERED: NOVOLOG100 UNIT/2 SC ×2 (08:58→09:08)
[2017-12-14] MEDS ORDERED: LEVEMIR100 UNIT/1 SC (08:58)
--- NOTE | 2017-12-14 09:04 | Patient Discharge Instructions ---
Discharge Instructions General Discharge Information Special Instructions: - Please follow up with your primary care physician within 1-2 weeks of discharge. Inform your primary care physician of this admission to [facility]. -Followup with Dr. Hutchison outpatient (Endocrinology) within one week - Continue your current medications per discharge instructions. - Please watch for these problems: Fever, Chills, Nausea, Vomiting, Shortness of Breath, Productive Cough, Chest Pain/Discomfort, Abdominal Pain, Active Bleeding or Bloody urine/stool. Please follow the new Insulin SS Accuchek Insulin <80 0 80-150 2 151-200 3 201-250 4 251-300 5 301-350 6 351-400 7 >400 8 Call MD Diet Continue normal diet: Yes Recommended Diet: Diabetic Activity Full Activity/No Limits: Yes Acute Coronary Syndrome Inclusion Criteria At DC or during hospital stay patient has or had the following: ACS DIAGNOSIS No Discharge Core Measures Meds if any: Prescribed or Continued at Discharge Meds if any: NOT Prescribed or Continued at Discharge Congestive Heart Failure Inclusion Criteria At DC or during hospital stay patient has or had the following: CHF DIAGNOSIS No Discharge Core Measures Meds if any: Prescribed or Continued at Discharge Meds if any: NOT Prescribed or Continued at Discharge Cerebrovascular accident Inclusion Criteria At DC or during hospital stay patient has or had the following: CVA/TIA Diagnosis No Discharge Core Measures Meds if any: Prescribed or Continued at Discharge Meds if any: NOT Prescribed or Continued at Discharge Venous thromboembolism Inclusion Criteria VTE Diagnosis No VTE Type NONE VTE Confirmed by (Test) NONE Discharge Core Measures - Per Current guidelines, there needs to be overlap - treatment for the first 5 days of Warfarin therapy. - If discharged on Warfarin prior to 5 days of - overlap therapy, the patient will need to be - assessed for post discharge needs including - *Post discharge parental anticoagulation - *Warfarin and/or parental anticoagulation education - *Follow up date to check INR post discharge At least 5 days overlap therapy as Inpatient No Meds if any: Prescribed or Continued at Discharge Note: Overlap Therapy is Warfarin and Anticoagulant Meds if any: NOT Prescribed or Continued at Discharge
[2017-12-14] MEDS ORDERED: TRAMADOL HCL50 M1 PO (09:19)
--- NOTE | 2017-12-14 10:40 | Discharge Summary ---
Visit Information Visit Dates Admission Date: 12/12/17 Discharge Date: 12/14/17 Hospital Course Course Attending Physician: Sangita Lee MD Primary Care Physician: Saeid Arias MD Consulting Request: 1 Consulting Specialty: Gastroenterology Consulting Physician: Alessandro Proctor MD Reason for Consult: Abdominal pain/acute abdomen Consulting Request: 2 Consulting Specialty: Endocrinology Consulting Physician: Sima Hutchison MD Reason for Consult: Diabetes control Hospital Course: This is a 42-year-old male with history of poorly controlled diabetes, asthma, several months of GI complaints, presenting to the emergency department with recurrence of nausea/vomiting/poorly localized abdominal pain. Patient states that he has not been able to eat well for the past several days, saw his PMD today and was told to come to the emergency department for placement of TPN tube. Patient complains of poorly localized abdominal pain today with ongoing nausea. He arrives tachycardic, denies fever/chills/chest pain/shortness of breath. Patient states that he has unintentionally lost about 40 pounds over the last few months. Patient was admitted to general medicine in order to resolve his acute abdominal pain. During this admission the primary team consulted gastroenterology and endocrinology. Endocrinology modified the patient's insulin therapy and plans to follow-up outpatient. Gastroenterology provided several recommendations for laboratory tests, which were followed up and all negative. After the patient's acute abdominal complaints of nausea and vomiting were addressed, patient was discharged to home with home health care to help manage his type 1 diabetes. Patient was instructed to follow up with his PCP, as well as endocrinology, for whom a consult was placed. Admission Physical Exam General Appearance Alert, Oriented X3, Cooperative, Mild Distress Skin No Rashes, No Breakdown Skin Temp/Moisture Exam: Warm/Dry Sepsis Skin Exam (color): Normal for Ethnicity HEENT Atraumatic, PERRLA, EOMI, Mucous membranes dry and pink Neck Supple, No thryomegaly, JVD present Lymphatic Axillary nl, Cervical nl Cardiovascular Regular Rate, Normal S1, Normal S2, No Murmurs Lungs Clear to Auscultation, Normal Air Movement Abdomen Normal Bowel Sounds, Soft, No Hepatospenomegaly, tender to palpation, especially in epigastric area Neurological Normal Speech, Strength at 5/5 X4 Ext, Normal Tone, Sensation Intact, Cranial Nerves 3-12 NL, peripheral neuropathy diffusely on feet Extremities No Clubbing, No Cyanosis, No Edema Vascular Normal Pulses, Pulses Symmetrical Admission Laboratory Urine glucose >=1000, serum glucose 292 HgA1C 9.1 Otherwise unremarkabl Problem List Differentials: gastroparesis/cyclic vomiting syndrome; DKA, HHS Problem list/plan: Nausea/vomiting/abdominal pain -Vitals and monitored I/O per protocol -NovoLog sliding scale, Accu-Chek pain discharged on tramadol in symptoms work up lung malignancy. (Patient left before performing chest xray) Chronic conditions (hyperglycemia, peripheral neuropathy, asthma, IV) -HbA1c poorly controlled (9.1) -followup outpatient with endocrinology, Dr. Hutchison Allergies: Coded Allergies: metoclopramide (From REGLAN) (Severe, "FEEL LIKE IM JUMPING OUT OF MY SKIN" ) nicotine (UNKNOWN PER PT 12/09/17) NICODERM PATCH Pertinent Lab Results: SERVICE DATE: 12/09/17 EXAM TYPE: CAT - CT ABD & PELVIS W IV CONTRAST IMPRESSION: No acute CT abnormality to explain the patient's symptoms. According to the technologist notes, 33 mg of Optiray 320 extravasated into the patient's right upper arm. A new IV was placed on the left. The extravasation protocol was followed. Disposition Summary Disposition Principal Diagnosis: Nausea and vomiting Additional Diagnosis: Abdominal pain Discharge Disposition: home health services Discharge Instructions General Discharge Information Code Status: Full Code Patient's Diet: As tolerated Patient's Activity: As tolerated Follow-Up Instructions/Appts: - Please follow up with your primary care physician within 1-2 weeks of discharge. Inform your primary care physician of this admission to . -Followup with Dr. Hutchison outpatient (Endocrinology) within one week - Continue your current medications per discharge instructions. - Please watch for these problems: Fever, Chills, Nausea, Vomiting, Shortness of Breath, Productive Cough, Chest Pain/Discomfort, Abdominal Pain, Active Bleeding or Bloody urine/stool. Please follow the new Insulin SS Accuchek Insulin <80 0 80-150 2 151-200 3 201-250 4 251-300 5 301-350 6 351-400 7 >400 8 Call MD Medications at Discharge Discharge Medications: Stop taking the following medications: Gabapentin (Gabapentin) 400 MG CAPSULE ORAL THREE TIMES DAILY Qty = 90 Insulin-Lantus (Lantus) 100 UNIT/ML VIAL SC TWICE DAILY Qty = 50 Insulin Aspart (Novolog) (Unknown Strength) VIAL SC THREE TIMES DAILY Qty = 30 Oxycodone HCl/Acetaminophen (Percocet 5-325 MG Tablet) 5 MG-325 MG TABLET ORAL 4 TIMES A DAY as needed for PAIN Qty = 10 Continue taking these medications: Pregabalin (Lyrica) 75 MG CAPSULE 1 Capsule ORAL THREE TIMES DAILY Pantoprazole Sodium (Pantoprazole Sodium) 40 MG TABLET.DR 1 Tablet ORAL TWICE DAILY Qty = 90 Albuterol Sulfate (Proair Hfa) 90 MCG HFA.AER.AD 2 Puff Inhale through mouth EVERY 4-6 HOURS NEEDED as needed for SHORTNESS OF BREATH Qty = 9 Sertraline HCl (Sertraline HCl) 50 MG TABLET 1 Tablet ORAL DAILY Qty = 30 Trazodone HCl (Trazodone HCl) 150 MG TABLET 1 Tablet ORAL Every night Promethazine HCl (Promethazine HCl) 25 MG TABLET 1 Tablet ORAL EVERY SIX HOURS NEEDED as needed for NAUSEA Qty = 15 Amitriptyline HCl (Amitriptyline HCl) 25 MG TABLET 1 Tablet ORAL Every night Qty = 30 Ondansetron (Zofran Odt) 4 MG TAB.RAPDIS 1 Tablet SUBLINGUAL THREE TIMES DAILY as needed for NAUSEA Qty = 30 Trimethobenzamide HCl (Tigan) 300 MG CAPSULE 1 Capsule ORAL THREE TIMES DAILY Start taking the following new medications: Insulin Aspart (Novolog) 100 UNIT/ML VIAL 0 Units SC 3 TIMES DAILY BEFORE MEALS Qty = 10 No Refills Instructions: BEFORE MEALS Blood Insulin Sugar Units <80 0 81-150 2 151-200 3 201-250 4 251-300 5 301-350 6 351-400 7 >400 8 Call Doctor AT BEDTIME Blood Insulin Sugar Units <80 0 81-150 0 101-200 0 201-250 2 251-300 3 301-350 4 351-400 5 >400 Call Doctor Insulin Detemir (Levemir) 100 UNIT/ML VIAL 10 Units SC TWICE DAILY Qty = 10 No Refills Tramadol HCl (Tramadol HCl) 50 MG TABLET 50 Milligram ORAL EVERY SIX HOURS as needed for Ab Pain Qty = 5 No Refills Copies To: Hugo CAGLE,Saeid Wells MD Review Statement Documenting Attending: Sangita Lee MD Other Findings: Patient with insulin dependinent diabetes mellitus with vomiting is admitted for uncontrolled hyperglycemia and intractbale vomitng likely gastroparesis with evidence negative so far and erosive gastritis and weight loss. Tolerated PO breakfast this am. GI and endo appreciated. Continue PO ppi. IDDM uncontrolled: Endo on board, insulin as per endo on discharge, Needs o/p follow up with Endo. Minimise narcotics for pain. Tylenol for pain control, Avoid marijuana. Consider outpatient work up including chest xray and CT head if no improvement in symptoms work up lung malignancy. (Patient left before performing chest xray) FOLLOW UP PCP at [facility] in 1 week of discharge Gastroenterology in 1-2 weeks of discharge Endocrinology Dr Hutchison in 1-2 weeks Consider outpatient work up including chest xray and CT head if no improvement in symptoms work up lung malignancy. (Patient left before performing chest xray) FOLLOW UP PCP at [facility] in 1 week of discharge Gastroenterology in 1-2 weeks of discharge Endocrinology Dr Hutchison in 1-2 weeks. FOLLOW UP PCP at [facility] in 1 week of discharge Gastroenterology in 1-2 weeks of discharge Endocrinology Dr Hutchison in 1-2 weeks.
== END 2017-12-14 11:40 | DRG 48 ==
LOC: ERH 10:39 → ERHI 13:02 → 2NB 13:02 → ENRESERV 13:27 → ENTRNSPT 13:55 → EDTRNSPT 14:24 → EDTRNSPTSTS 14:24 → 2NB 14:32 → CMPTRNSPT 14:54 → ENPENDDIS 12-14 11:07 → 2NB 12-14 11:40
PROVIDERS: General Practice; Student in an Organized Health Care Education/Training Program
DX: E10.43 Type 1 diabetes mellitus with diabetic autonomic (poly)neuropathy (principal); E10.65 Type 1 diabetes mellitus with hyperglycemia; K31.84 Gastroparesis; Z79.4 Long term (current) use of insulin; F12.10 Cannabis abuse, uncomplicated; J45.909 Unspecified asthma, uncomplicated; Z88.8 Allergy status to other drugs, medicaments and biological substances; Z91.048 Other nonmedicinal substance allergy status; F17.210 Nicotine dependence, cigarettes, uncomplicated; Z79.51 Long term (current) use of inhaled steroids
CPT/HCPCS: 2NBSP; 83516; 87338; 36592; 80307; 81003; 82436; 82784; 86376; 86800; 87086; 87389; 93005; 93010; J0131; J1630; J1650; J2405; J3101; J3490